=== PATIENT | female | born 1980 | race Caucasian/White ===

== ENCOUNTER → 2017-06-03 | Outpatient (CLI) | payer BC | END | disposition home or self-care (01) | LOC: LABWHC1 16:59 | PROVIDERS: ATTEND Obstetrics & Gynecology | DX: Z34.80 Encounter for supervision of other normal pregnancy, unspecified trimester (principal); Z3A.00 Weeks of gestation of pregnancy not specified | CPT/HCPCS: 36415; 84702; 86850; 86900; 86901 ==

== ENCOUNTER → 2017-07-13 | Outpatient (CLI) | payer BC ==
[2017-07-13 17:43] LABS: HCT 35.1 % (34.0-46.0); HGB 11.9 gm/dL (11.4-16.0); MCH 29.5 pg (25.0-35.0); MCHC 33.8 g/dL (31.0-37.0); MCV 87.3 fL (80.0-100.0); Mean Platelet Volume 8.7; Platelet Count 213 k/uL (150-450); RBC 4.02 m/uL (3.80-5.40); RDW 12.8 % (11.5-15.5); WBC 11.2 k/uL (3.8-10.6)
[2017-07-13 17:59] LABS: Glucose 96 mg/dL (74-99)
[2017-07-14 03:11] LABS: HIV AB P24 Non-Reactive (Non-Reactive); HIV P24 AG Non-Reactive (Non-Reactive)
[2017-07-15 05:00] LABS: Toxoplasma Antibody (IgG) <3.0 IU/mL (<7.2); Toxoplasma Antibody (IgM) <3.0 AU/mL (<8.0)
== END | disposition home or self-care (01) ==
LOC: LABWHC1 17:15
PROVIDERS: ATTEND Obstetrics & Gynecology
DX: O26.811 Pregnancy related exhaustion and fatigue, first trimester (principal); Z3A.00 Weeks of gestation of pregnancy not specified
CPT/HCPCS: 36415; 82565; 82947; 85027; 86592; 86762; 86777; 86778; 87340; 87390

== ENCOUNTER 2017-08-11 00:03 | Emergency (ER) | payer BC ==
[2017-08-11 00:11] VITALS: RESP 18; TEMP 98.9
[2017-08-11 02:26] LABS: Appearance,Urine Clear (Clear); Basophils % (A) 0 %; Bilirubin,Urine Negative (Negative); Blood,Urine Negative (Negative); Color,Urine Yellow; Eosinophils # (A) 0.4 k/uL (0-0.7); Eosinophils % (A) 3 %; Glucose,Urine (UA) Negative (Negative); HCT 36.4 % (34.0-46.0); HGB 12.9 gm/dL (11.4-16.0); Ketones,Urine Negative (Negative); Leukocyte Esterase,Urine Negative (Negative); Lymphocytes # (A) 2.1 k/uL (1.0-4.8); Lymphocytes % (A) 15 %; MCH 29.7 pg (25.0-35.0); MCHC 35.3 g/dL (31.0-37.0); MCV 84.1 fL (80.0-100.0); Mean Platelet Volume 7.5; Monocytes # (A) 0.5 k/uL (0-1.0); Monocytes % (A) 4 %; Neutrophils # (A) 10.3 k/uL (1.3-7.7); Neutrophils % (A) 77 %; Nitrite,Urine Negative (Negative); PH, Urine 6.5 (5.0-8.0); Platelet Count 232 k/uL (150-450); Protein,Urine Negative (Negative); RBC 4.33 m/uL (3.80-5.40); RDW 12.5 % (11.5-15.5); Specific Gravity,Urine 1.014 (1.001-1.035); Urobilinogen,Urine <2.0 mg/dL (<2.0); WBC 13.4 k/uL (3.8-10.6)
--- NOTE | 2017-08-11 02:29 | ED ---
Abdominal Pain HPI - General Chief Complaint: Abdominal Pain Stated Complaint: 15.5 wks preg cramping Time Seen by Provider: 08/11/17 01:27 Source: patient, family, RN notes reviewed Mode of arrival: ambulatory Limitations: no limitations - History of Present Illness Initial Comments: This is a A1 37-year-old female, currently 15.5 weeks , who presents to the emergency department with chief complaint of lower abdominal cramping. Patient states that she developed what felt like menstrual cramping this evening at approximately 9:30. Denies any vaginal bleeding or abnormal discharge. States that currently the cramping is mild. States that her TUNNEL MAN is Dr. Lee. Denies fevers or chills, nausea or vomiting, diarrhea or constipation, chest pain or shortness of breath. - Related Data Home Medications Medication Instructions Recorded Confirmed Bfd-Mvfk-Adfuz Acid 1 tab PO HS 09/09/13 08/11/17 [-U Capsule (formulary)] B Complex & C No.20/Folic Acid 1 mg PO DAILY 04/23/16 08/11/17 [Nephrocaps Softgel] Sertraline HCl [Zoloft] 150 mg PO DAILY 08/11/17 08/11/17 Previous Rx's Medication Instructions Recorded Ibuprofen [Motrin] 600 mg PO Q6HR PRN #40 tab 04/24/16 Allergies Allergy/AdvReac Type Severity Reaction Status Date / Time No Known Allergies Allergy Verified 08/11/17 00:11 Review of Systems ROS Statement: Those systems with pertinent positive or pertinent negative responses have been documented in the HPI. ROS Other: All systems not noted in ROS Statement are negative. Past Medical History Past Medical History: GERD/Reflux Additional Past Medical History / Comment(s): MISSED AB - HAVING VAGINAL BLEEDING. History of Any Multi-Drug Resistant Organisms: None Reported Past Surgical History: No Surgical Hx Reported Additional Past Surgical History / Comment(s): Patient had a dilation and curettage for a missed . Past Anesthesia/Blood Transfusion Reactions: No Reported Reaction, Family History of Problems w/ Anesthesia Additional Past Anesthesia/Blood Transfusion Reaction / Comment(s): NO SURGICAL HX. PT'S MOM HAS PONV Past Psychological History: Anxiety Smoking Status: Never smoker Past Alcohol Use History: Occasional Past Drug Use History: None Reported - Past Family History Mother Family Medical History: No Reported History Father Family Medical History: No Reported History General Exam - General Exam Comments Initial Comments: General: Awake and alert, well-developed; in no apparent distress. is at bedside. HEENT: Head atraumatic, normocephalic. Pupils are equal, round and reactive to light. Extraocular movements intact. Oropharynx moist without erythema or exudate. Neck: Supple. Normal ROM. Cardiovascular: Regular rate and rhythm. No murmurs, rubs or gallops. Chest symmetrical. Respiratory: Lungs clear to auscultation bilaterally. No wheezes, rales or rhonchi. Normal respiratory effort with no use of accessory muscles. Abdomen: Soft, non-tender, non-distended. No rigidity, rebound or guarding. Musculoskeletal: Normal ROM, no tenderness bilateral upper and lower extremities. Skin: [place], warm and dry without rashes or lesions. Neurological: Alert and oriented x3. CN II-XII grossly intact. Speech is fluent and answers are appropriate. No focal neuro deficits. Psychiatric: Normal mood and affect. No overt signs of depression or anxiety noted. Limitations: no limitations Course Vital Signs 08/11/17 08/11/17 00:07 03:32 Temperature 98.9 F 98.9 F Pulse Rate 98 81 Respiratory 18 18 Rate Blood Pressure 124/81 134/72 O2 Sat by Pulse 97 98 Oximetry Medical Decision Making - Medical Decision Making This is a 37-year-old female, currently 15.5 weeks , who presents to the emergency department with chief complaint of lower abdominal cramping. Patient's vital signs are stable and she is in no acute distress. CBC did reveal a slight increase in white count at 13.4 with left shift at 10.3. CMP and UA were within normal limits. Obstetric ultrasound revealed a single, live intrauterine at 16 weeks/4 days with evidence of posterior marginal placenta previa without abruption. Patient denies any vaginal bleeding. Her OB /MARINE STRUCTURAL WELDER is Dr. Lee. Recommended following up with Dr. Lee tomorrow. Patient was made aware of findings and plan. She is in agreement and voices understanding. She is in no acute distress. All questions answered. - Lab Data Result diagrams: 08/11/17 02:10 08/11/17 02:10 Lab Results 08/11/17 08/11/17 08/11/17 Range/Units 02:10 02:10 02:10 WBC 13.4 H (3.8-10.6) k/uL RBC 4.33 (3.80-5.40) m/uL Hgb 12.9 (11.4-16.0) gm/dL Hct 36.4 (34.0-46.0) % MCV 84.1 (80.0-100.0) fL MCH 29.7 (25.0-35.0) pg MCHC 35.3 (31.0-37.0) g/dL RDW 12.5 (11.5-15.5) % Plt Count 232 (150-450) k/uL Neutrophils % 77 % Lymphocytes % 15 % Monocytes % 4 % Eosinophils % 3 % Basophils % 0 % Neutrophils # 10.3 H (1.3-7.7) k/uL Lymphocytes # 2.1 (1.0-4.8) k/uL Monocytes # 0.5 (0-1.0) k/uL Eosinophils # 0.4 (0-0.7) k/uL Basophils # 0.0 (0-0.2) k/uL Sodium 136 L (137-145) mmol/L Potassium 4.4 (3.5-5.1) mmol/L Chloride 102 (98-107) mmol/L Carbon Dioxide 23 (22-30) mmol/L Anion Gap 11 mmol/L BUN 11 (7-17) mg/dL Creatinine 0.50 L (0.52-1.04) mg/dL Est GFR (CKD-EPI)AfAm >90 (>60 ml/min/1.73 sqM) Est GFR (CKD-EPI)NonAf >90 (>60 ml/min/1.73 sqM) Glucose 86 (74-99) mg/dL Calcium 9.7 (8.4-10.2) mg/dL Total Bilirubin 0.3 (0.2-1.3) mg/dL AST 29 (14-36) U/L ALT 44 (9-52) U/L Alkaline Phosphatase 64 (38-126) U/L Total Protein 6.9 (6.3-8.2) g/dL Albumin 3.7 (3.5-5.0) g/dL HCG, Quant 98556.2 mIU/mL Urine Color Yellow Urine Appearance Clear (Clear) Urine pH 6.5 (5.0-8.0) Ur Specific [place] 1.014 (1.001-1.035) Urine Protein Negative (Negative) Urine Glucose (UA) Negative (Negative) Urine Ketones Negative (Negative) Urine Blood Negative (Negative) Urine Nitrite Negative (Negative) Urine Bilirubin Negative (Negative) Urine Urobilinogen <2.0 (<2.0) mg/dL Ur Leukocyte Esterase Negative (Negative) Blood Type Blood Type Recheck 08/11/17 Range/Units 02:43 WBC (3.8-10.6) k/uL RBC (3.80-5.40) m/uL Hgb (11.4-16.0) gm/dL Hct (34.0-46.0) % MCV (80.0-100.0) fL MCH (25.0-35.0) pg MCHC (31.0-37.0) g/dL RDW (11.5-15.5) % Plt Count (150-450) k/uL Neutrophils % % Lymphocytes % % Monocytes % % Eosinophils % % Basophils % % Neutrophils # (1.3-7.7) k/uL Lymphocytes # (1.0-4.8) k/uL Monocytes # (0-1.0) k/uL Eosinophils # (0-0.7) k/uL Basophils # (0-0.2) k/uL Sodium (137-145) mmol/L Potassium (3.5-5.1) mmol/L Chloride (98-107) mmol/L Carbon Dioxide (22-30) mmol/L Anion Gap mmol/L BUN (7-17) mg/dL Creatinine (0.52-1.04) mg/dL Est GFR (CKD-EPI)AfAm (>60 ml/min/1.73 sqM) Est GFR (CKD-EPI)NonAf (>60 ml/min/1.73 sqM) Glucose (74-99) mg/dL Calcium (8.4-10.2) mg/dL Total Bilirubin (0.2-1.3) mg/dL AST (14-36) U/L ALT (9-52) U/L Alkaline Phosphatase (38-126) U/L Total Protein (6.3-8.2) g/dL Albumin (3.5-5.0) g/dL HCG, Quant mIU/mL Urine Color Urine Appearance (Clear) Urine pH (5.0-8.0) Ur Specific [place] (1.001-1.035) Urine Protein (Negative) Urine Glucose (UA) (Negative) Urine Ketones (Negative) Urine Blood (Negative) Urine Nitrite (Negative) Urine Bilirubin (Negative) Urine Urobilinogen (<2.0) mg/dL Ur Leukocyte Esterase (Negative) Blood Type AB Negative Blood Type Recheck No - Radiology Data Radiology results: report reviewed Obstetric ultrasound impression: Single, live IUP, 16 weeks/4 days. EDC: 2017. Heart rate 150 bpm, placenta previa is noted at this time. Impression: The cervix is closed and measures 3.8 cm. There is a posterior marginal placental previa. No evidence of abruption. Disposition Clinical Impression: Abdominal pain during , Placenta previa Disposition: HOME SELF-CARE Condition: Good Instructions: Abdominal Pain in (ED), Placenta Previa (ED) Additional Instructions: Please follow-up with Dr. Lee today or tomorrow. Please follow up with primary care provider within 1-2 days. Return to emergency department if symptoms should worsen or any concerns arise. Is patient prescribed a controlled substance at discharge?: No Referrals: Salvador Jung DO [Primary Care Provider] - 1-2 days Time of Disposition: 04:04
[2017-08-11 02:38] LABS: ALT 44 U/L (9-52); AST 29 U/L (14-36); Albumin 3.7 g/dL (3.5-5.0); Alkaline Phosphatase 64 U/L (38-126); Anion Gap 11 mmol/L; Blood Urea Nitrogen 11 mg/dL (7-17); Calcium 9.7 mg/dL (8.4-10.2); Carbon Dioxide 23 mmol/L (22-30); Chloride 102 mmol/L (98-107); Glucose 86 mg/dL (74-99); Potassium 4.4 mmol/L (3.5-5.1); Sodium 136 mmol/L (137-145); Total Bilirubin 0.3 mg/dL (0.2-1.3); Total Protein 6.9 g/dL (6.3-8.2)
--- NOTE | 2017-08-11 03:14 | US ---
EXAMINATION TYPE: US OB >= 14 wk fetus DATE OF EXAM: 08/11/2017 COMPARISON: None CLINICAL HISTORY: Pain; contractions x 3 hours TECHNIQUE: Transabdominal (TA) with TV US for cervical measure GESTATIONAL AGE / DATING Physician Established: Not yet established Dates by LMP: (15 weeks/5 days) EDC: 01/28/2018 Dates by First Scan: No previous this is first scan ) Dates by Current Scan: (16 weeks/4 days) EDC: 01/22/2018 Beta HCG (if available): na SURVEY IUP: Single PLACENTA: Posterior PREVIA: Complete ROBIN: 9.5 cm is just at start of measuring ROBIN at 16 weeks gestation CERVICAL LENGTH (transabdominal: norm > 3.0cm): cervix not well seen with empty bladder thus TV US do ne CERVICAL LENGTH (transvaginal: norm> 2.5cm): 3.6 cm (Supplemental transvaginal imaging performed to verify cervical length.) BIOMETRY PRESENTATION: Vertex LIE: Longitudinal BPD: 3.4 cm 16 weeks / 4 days HC: 12.2 cm 16 weeks / 1 day AC: 10.7 cm 16 weeks / 4 days FL: 2.2 cm 16. weeks / 4 days ESTIMATED WEIGHT IN GRAMS: 159.9 grams ESTIMATED WEIGHT IN LBS/OZ: 0 lbs. 6 oz. WEIGHT PERCENTAGE BASED ON ESTABLISHED DATES: 90.4% HC/AC: 1.15 Normal FL/AC: 20.61 Normal HEART RATE: 150 bpm RHYTHM: Normal Single, live IUP,16 weeks/4 days, EDC: 01/22/2018 , HR 150bpm, placenta previa is noted at this time. IMPRESSION: The cervix is closed and measures 3.8 cm. There is a posterior marginal placenta previa. No evidence of abruption.
[2017-08-11 03:23] LABS: HCG,Quantitative Serum 36238.2 mIU/mL
[2017-08-11 03:33] VITALS: BP 134/72; PULSE 81
== END 2017-08-11 04:13 | disposition home or self-care (01) ==
LOC: EC 00:03
DX: O44.02 Complete placenta previa NOS or without hemorrhage, second trimester (principal); O99.89 Other specified diseases and conditions complicating pregnancy, childbirth and the puerperium; R10.30 Lower abdominal pain, unspecified; O99.342 Other mental disorders complicating pregnancy, second trimester; F41.9 Anxiety disorder, unspecified; Z79.899 Other long term (current) drug therapy; Z3A.16 16 weeks gestation of pregnancy
CPT/HCPCS: 36415; 76805; 76817; 80053; 81003; 84702; 85025; 86900; 86901; 87086; 99284

== ENCOUNTER → 2017-11-04 | Outpatient (CLI) | payer BC ==
[2017-11-04 09:39] LABS: HCT 31.4 % (34.0-46.0); HGB 10.8 gm/dL (11.4-16.0); MCH 30.8 pg (25.0-35.0); MCHC 34.3 g/dL (31.0-37.0); MCV 89.8 fL (80.0-100.0); Mean Platelet Volume 8.2; Platelet Count 207 k/uL (150-450); WBC 11.9 k/uL (3.8-10.6)
== END | disposition home or self-care (01) ==
LOC: LABWHC1 08:13
PROVIDERS: ATTEND Obstetrics & Gynecology
DX: Z34.82 Encounter for supervision of other normal pregnancy, second trimester (principal); Z3A.00 Weeks of gestation of pregnancy not specified
CPT/HCPCS: 36415; 82950; 85027; 86850

== ENCOUNTER → 2017-11-19 | Outpatient (CLI) | payer BC ==
[2017-11-19 12:16] LABS: Glucose 3 Hour, Gest 108 mg/dL
== END | disposition home or self-care (01) ==
LOC: LABWHC1 08:11
PROVIDERS: ATTEND Obstetrics & Gynecology
DX: O99.810 Abnormal glucose complicating pregnancy (principal); Z3A.00 Weeks of gestation of pregnancy not specified
CPT/HCPCS: 36415; 82951; 82952

== ENCOUNTER 2018-01-21 06:00 | Inpatient (IN) | payer BC ==
[2018-01-21] MEDS ORDERED: AMPICILLIN 2,000 MG in SODIUM CHLORIDE 0.9% 100 ML IVPB STA (06:08)
[2018-01-21] MEDS ORDERED: OXYTOCIN 20 UNITS/1000 ML NS 1,000 ML IV SCH ×2 (06:08→13:01)
[2018-01-21] MEDS ORDERED: CARBOPROST TROMETHAMINE 250 MCG/ML 1 ML AMP IM PRN (06:08)
[2018-01-21] MEDS ORDERED: METHYLERGONOVINE 0.2 MG/ML 1 ML AMP IM PRN (06:08)
[2018-01-21] MEDS ORDERED: LIDOCAINE 0.5% (PF) 5 MG/ML (50 ML SDV) SQ PRN (06:08)
[2018-01-21] MEDS ORDERED: TERBUTALINE 1 MG/ML VIAL SQ PRN (06:08)
[2018-01-21] MEDS ORDERED: OXYTOCIN 10 UNIT/ML 1 ML VIAL IM PRN (06:08)
[2018-01-21] MEDS: LACTATED RINGERS 1,000 ML IV SCH ×2 (06:18→10:45)
[2018-01-21 06:26] VITALS: RESP 16; BMI 31.8
[2018-01-21 06:27] LABS: Basophils % (A) 0 %; Eosinophils # (A) 0.3 k/uL (0-0.7); Eosinophils % (A) 3 %; HCT 34.9 % (34.0-46.0); HGB 11.6 gm/dL (11.4-16.0); Lymphocytes # (A) 1.9 k/uL (1.0-4.8); Lymphocytes % (A) 17 %; MCH 28.1 pg (25.0-35.0); MCHC 33.2 g/dL (31.0-37.0); MCV 84.8 fL (80.0-100.0); Mean Platelet Volume 9.8; Monocytes # (A) 0.7 k/uL (0-1.0); Monocytes % (A) 6 %; Neutrophils # (A) 8.2 k/uL (1.3-7.7); Neutrophils % (A) 73 %; Platelet Count 152 k/uL (150-450); RBC 4.12 m/uL (3.80-5.40); RDW 13.7 % (11.5-15.5); WBC 11.4 k/uL (3.8-10.6)
--- NOTE | 2018-01-21 06:33 | P.HPOB ---
History of Present Illness H&P Date: 01/21/18 Chief Complaint: Cholestasis of . This patient is a pleasant 37-year-old 4 para 2 female estimated date of confinement 01/28/2018 estimated gestational age 39-0/7 weeks gestation who is admitted to labor and delivery for induction of labor due to suspected cholestasis. Patient recalled my office proximally 2 days ago with complaints of itching of her hands and feet and bilateral's as are pending but liver function tests were mildly elevated. Since the patient is 39 weeks with a favorable cervix I recommended proceed with delivery at this time. Patient's care is complicated by advanced for maternal age and she has seen maternal medicine and had a level III ultrasound that was normal however her cardiac echo did show persistent mild increased left ventricular low velocity. The specialist did not feel that this was anything that would affect delivery or the immediate period however did recommend a nonemergent heart echo . otherwise has been uncomplicated. Review of Systems Gastrointestinal: Reports heartburn Genitourinary: Reports Menstruation: Reports amenorrhea Past Medical History Past Medical History: GERD/Reflux Additional Past Medical History / Comment(s): Patient's had 2 spontaneous vaginal deliveries. History of Any Multi-Drug Resistant Organisms: None Reported Past Surgical History: No Surgical Hx Reported Additional Past Surgical History / Comment(s): Patient had a dilation and curettage for a missed . Past Anesthesia/Blood Transfusion Reactions: No Reported Reaction, Family History of Problems w/ Anesthesia Additional Past Anesthesia/Blood Transfusion Reaction / Comment(s): NO SURGICAL HX. PT'S MOM HAS PONV Past Psychological History: Anxiety Smoking Status: Never smoker Past Alcohol Use History: Occasional Past Drug Use History: None Reported - Past Family History Mother Family Medical History: No Reported History Father Family Medical History: No Reported History Medications and Allergies Home Medications Medication Instructions Recorded Confirmed Type Fpx-Gyqg-Agykb Acid 1 tab PO HS 09/09/13 01/21/18 History [-U Capsule (formulary)] B Complex & C No.20/Folic Acid 1 mg PO DAILY 04/23/16 01/21/18 History [Nephrocaps Softgel] Ibuprofen [Motrin] 600 mg PO Q6HR PRN #40 tab 04/24/16 01/21/18 Rx Sertraline HCl [Zoloft] 50 mg PO DAILY 08/11/17 01/21/18 History Allergies Allergy/AdvReac Type Severity Reaction Status Date / Time No Known Allergies Allergy Verified 01/21/18 06:07 Exam Intake and Output 01/20/18 01/20/18 01/21/18 14:59 22:59 06:59 Other: Weight 78.925 kg - OBG Physical Exam Abdomen: bowel sounds normal, no diffuse tenderness, no bruit present, no guarding noted, no hepatomegaly, no splenomegaly, no mass Vulva: both: normal Vagina: normal moisture, no discharge Cervix: no lesion (Cervix is 2 cm dilated 70% effaced -2 station.), no discharge Uterus: enlarged (Fundal height is 38 cm) Results blood work shows she is AB-, rubella immune, RPR is nonreactive, hepatitis B is negative, HIV is nonreactive, ultrasounds have been as above, she is a positive group B strep she's had an abnormal Glucola with a normal three-hour gtt. Assessment and Plan Assessment: This is a pleasant 37-year-old 4 para 2 female 39-0/7 weeks gestation who is admitted to labor and delivery for induction of labor due to suspected cholestasis. Patient has a positive B strep culture and therefore receive IV antibiotics. Plan is induction of labor with Pitocin per protocol. I'm going to recheck her liver function tests and also notified pediatricians of the cardiac echo findings for heart echo. (1) Cholestasis during Current Visit: Yes Status: Acute Code(s): O26.619 - LIVER AND BILIARY TRACT DISORD IN , UNSP TRIMESTER; K83.1 - OBSTRUCTION OF BILE DUCT SNOMED Code(s): 745581158 (2) Rh negative, maternal Current Visit: No Status: Chronic Code(s): O09.899 - SUPERVISION OF OTHER HIGH RISK PREGNANCIES, UNSP TRIMESTER SNOMED Code(s): 043376392 (3) Group B streptococcal carriage complicating Current Visit: No Status: Acute Code(s): O99.820 - STREPTOCOCCUS B CARRIER STATE COMPLICATING SNOMED Code(s): 060766182005792 (4) Elderly multigravida Current Visit: Yes Status: Acute Code(s): O09.529 - SUPERVISION OF ELDERLY MULTIGRAVIDA, UNSPECIFIED TRIMESTER SNOMED Code(s): 181135895
[2018-01-21 06:36] LABS: Albumin 3.3 g/dL (3.5-5.0); Bilirubin, Delta 0.2 mg/dL (0.0-0.2); Bilirubin,Unconjugated 0.2 mg/dL (0.0-1.1); Total Bilirubin 0.4 mg/dL (0.2-1.3); Total Protein 6.4 g/dL (6.3-8.2)
[2018-01-21] MEDS ORDERED: BUPIVACAINE (PF) 0.25% 30 ML VIAL ONE (08:29)
[2018-01-21] MEDS ORDERED: fentaNYL (PF) 50 MCG/ML 5 ML AMP ONE (08:29)
[2018-01-21] MEDS ORDERED: ROPIVACAINE 5MG/ML 20ML VIAL ONE (08:29)
[2018-01-21] MEDS ORDERED: SODIUM CHLORIDE 0.9% 100 ML BAG ONE (08:29)
[2018-01-21] MEDS ORDERED: AMPICILLIN 1,000 MG in SODIUM CHLORIDE 0.9% 50 ML IVPB SCH (10:00)
--- NOTE | 2018-01-21 12:49 | P.PROBDLV ---
Vaginal Delivery Note - . Vaginal Delivery Note: Normal vaginal delivery viable female Apgars 8 and 9 delivery time is 1232 hrs. Please see dictated H&P for intimate details of this patient's admission. In brief summary this is a pleasant 37-year-old 4 para 2 female 39 weeks gestation admitted to labor and delivery for suspected cholestasis of . Patient is admitted she is 2 cm dilated has artificial rupture membranes for clear fluid. Labor is induced with Pitocin per protocol. Patient progresses and does get an epidural for pain control. Patient's labor goes quickly thereafter she gets to complete. Patient pushes approximately 3 times pushes the head to the perineum. Posterior perineum is supported. We then have controlled delivery of the infant's head over the intact perineum. Mouth and nares are bulb suctioned. There is no evidence of nuchal cord. With gentle downward traction and maternal effort we have delivery the anterior shoulder and posterior shoulder and rest this infant's body. This is a vigorous viable female Apgars are 8 and 9 delivery time was 1232 hrs. Infant has spontaneous respirations and good cry and grossly appears normal. is late on the mother's abdomen. After the cord is done pulsating is doubly clamped and cut. It appears to be trivascular. The placenta is then spontaneously delivered intact. Cord blood is obtained for Rh status. Inspection of the perineum shows no lacerations and no repairs necessary. and mother are stable delivery room. I did discuss previously with the pattern changer and repairer's baby's cardiac echo and this will be evaluated as well. All counts are correct 3. There are no complications.
[2018-01-21] MEDS ORDERED: WITCH HAZEL 1 EACH MED..PAD TOPICAL PRN (13:01)
[2018-01-21] MEDS ORDERED: BENZOCAINE/MENTHOL SPRAY 1 GM/SPRAY AEROSOL TOPICAL PRN (13:01)
[2018-01-21] MEDS ORDERED: Rhogam IMMUNE GLOBULIN 1,500 UNIT/1 ML IM ONE (13:01)
[2018-01-21] MEDS ORDERED: HYDROCORTISONE 2.5% RECTAL CREAM 30 GM TUBE RECTAL PRN (13:01)
[2018-01-21] MEDS ORDERED: SIMETHICONE 80 MG CHEWABLE PO PRN (13:01)
[2018-01-21] MEDS ORDERED: BISACODYL 10 MG SUPP RECTAL PRN (13:01)
[2018-01-21] MEDS ORDERED: diphenhydrAMINE 50 MG/ML 1 ML VIAL IVP PRN (13:01)
[2018-01-21] MEDS ORDERED: ACETAMINOPHEN TAB 325 MG TAB PO PRN (13:01)
[2018-01-21] MEDS ORDERED: LANOLIN CREAM 5 GM TUBE TOPICAL PRN (13:01)
[2018-01-21] MEDS ORDERED: diphenhydrAMINE 25 MG CAP PO PRN (13:01)
[2018-01-21] MEDS ORDERED: ZOLPIDEM 5 MG TAB PO PRN (13:01)
[2018-01-21] MEDS: IBUPROFEN 600 MG TAB PO PRN (18:19)
[2018-01-21] MEDS: SENNOSIDES-DOCUSATE SODIUM 1 EACH TAB PO SCH ×2 (20:47→20:48)
[2018-01-22] MEDS: IBUPROFEN 600 MG TAB PO PRN ×2 (00:17→10:29)
--- NOTE | 2018-01-22 06:00 | P.PNOBGVD ---
Subjective - Subjective Patient reports: Reports appetite normal, Reports voiding normally, Reports pain well controlled, Reports ambulating normally : doing well Objective - Latest Vital Signs Latest vital signs: Vital Signs Temp Pulse Resp BP Pulse Ox 01/22/18 00:00 98.4 F 73 16 127/74 01/21/18 20:00 99.0 F 79 16 136/91 01/21/18 15:25 97.6 F 92 16 120/68 01/21/18 14:30 80 16 160/84 01/21/18 13:50 94 16 138/67 01/21/18 13:35 92 16 120/63 01/21/18 13:20 90 16 128/63 01/21/18 13:05 102 H 16 128/63 01/21/18 12:50 97.8 F 96 16 137/66 01/21/18 06:06 96.5 F L 97 16 130/86 97 Intake and Output 01/21/18 01/21/18 01/22/18 14:59 22:59 06:59 Output Total 150 Balance -150 Output: Estimated Blood Loss 150 Other: # Voids 0 1 - Exam Lungs: bilateral: normal Chest: Normal S1, Normal S2 Extremities: Present: normal Abdomen: Present: normal appearance, soft Uterus: Present: normal, firm - Labs Labs: Abnormal Lab Results - Last 24 Hours (Table) 01/21/18 01/21/18 Range/Units 06:15 06:15 WBC 11.4 H (3.8-10.6) k/uL Neutrophils # 8.2 H (1.3-7.7) k/uL AST 95 H (14-36) U/L ALT 99 H (9-52) U/L Alkaline Phosphatase 189 H (38-126) U/L Albumin 3.3 L (3.5-5.0) g/dL Assessment and Plan Assessment: Post day #1. Patient is resting without complaints wishes to go home. Vital signs are stable and she is afebrile. Patient's liver function tests and CBC are pending at this time. Plan is to continue routine care. Most likely discharge home later today. (1) Cholestasis during Current Visit: Yes Status: Acute Code(s): O26.619 - LIVER AND BILIARY TRACT DISORD IN , UNSP TRIMESTER; K83.1 - OBSTRUCTION OF BILE DUCT SNOMED Code(s): 899043209 (2) Rh negative, maternal Current Visit: No Status: Chronic Code(s): O09.899 - SUPERVISION OF OTHER HIGH RISK PREGNANCIES, UNSP TRIMESTER SNOMED Code(s): 032811054 (3) Group B streptococcal carriage complicating Current Visit: No Status: Acute Code(s): O99.820 - STREPTOCOCCUS B CARRIER STATE COMPLICATING SNOMED Code(s): 579247216038233 (4) Elderly multigravida Current Visit: Yes Status: Acute Code(s): O09.529 - SUPERVISION OF ELDERLY MULTIGRAVIDA, UNSPECIFIED TRIMESTER SNOMED Code(s): 703973991
--- NOTE | 2018-01-22 06:11 | P.DS ---
Providers Date of admission: 01/21/18 06:00 Expected date of discharge: 01/22/18 Attending physician: Jose Lee Primary care physician: Salvador Jung - Discharge Diagnosis(es) (1) Cholestasis during Current Visit: Yes Status: Acute (2) Rh negative, maternal Current Visit: No Status: Chronic (3) Group B streptococcal carriage complicating Current Visit: No Status: Acute (4) Elderly multigravida Current Visit: Yes Status: Acute Hospital Course: Please see dictated H&P for intimate details of this patient's admission. Brief summary this pleasant 37-year-old 4 para 2 female admitted to labor and delivery for suspected cholestasis. Patient is uncomplicated induction of labor was on have a vaginal delivery viable female infant. Please see dictated delivery note. Patient's AST and ALT were elevated on admission and the 90 range and repeat is pending at time is dictation. Patient's felt be stable for discharge home follow up with me in 6 weeks. We'll monitor her liver function tests as an outpatient. Procedures: Induction of labor and normal vaginal delivery Patient Condition at Discharge: Good Plan - Discharge Summary New Discharge Prescriptions: New Ibuprofen [Motrin] 600 mg PO Q6HR PRN #40 tab PRN Reason: Mild Pain Or Fever >= 100.5 No Action Zjg-Xgen-Vjjzw Acid [-U Capsule (formulary)] 1 tab PO HS B Complex & C No.20/Folic Acid [Nephrocaps Softgel] 1 mg PO DAILY Ibuprofen [Motrin] 600 mg PO Q6HR PRN #40 tab PRN Reason: Mild Pain Or Fever >= 100.5 Sertraline HCl [Zoloft] 50 mg PO DAILY Discharge Medication List Mub-Swlm-Hkatr Acid [-U Capsule (formulary)] 1 tab PO HS [History] B Complex & C No.20/Folic Acid [Nephrocaps Softgel] 1 mg PO DAILY 04/23/16 [ History] Ibuprofen [Motrin] 600 mg PO Q6HR PRN #40 tab 04/24/16 [Rx] Sertraline HCl [Zoloft] 50 mg PO DAILY 08/11/17 [History] Ibuprofen [Motrin] 600 mg PO Q6HR PRN #40 tab 01/22/18 [Rx] Follow up Appointment(s)/Referral(s): Jose Lee MD [STAFF PHYSICIAN] - 03/04/18 11:15 am Patient Instructions/Handouts: Vaginal Delivery (DC) Activity/Diet/Wound Care/Special Instructions: No intercourse or anything per vagina for 6 weeks. Please call if any fever, chills, excessive vaginal bleeding, and/or abdominal pain. Discharge Disposition: HOME SELF-CARE
[2018-01-22 07:38] VITALS: BP 122/76; PULSE 76; TEMP 97.6
[2018-01-22] MEDS: SENNOSIDES-DOCUSATE SODIUM 1 EACH TAB PO SCH (07:47)
[2018-01-22 08:11] LABS: Basophils % (A) 0 %; Eosinophils # (A) 0.2 k/uL (0-0.7); Eosinophils % (A) 2 %; HCT 32.1 % (34.0-46.0); HGB 10.5 gm/dL (11.4-16.0); Lymphocytes # (A) 1.7 k/uL (1.0-4.8); Lymphocytes % (A) 13 %; MCH 28.4 pg (25.0-35.0); MCHC 32.9 g/dL (31.0-37.0); MCV 86.4 fL (80.0-100.0); Mean Platelet Volume 10.3; Monocytes # (A) 0.7 k/uL (0-1.0); Monocytes % (A) 6 %; Neutrophils % (A) 78 %; Platelet Count 137 k/uL (150-450); RBC 3.71 m/uL (3.80-5.40); RDW 13.8 % (11.5-15.5); WBC 12.9 k/uL (3.8-10.6)
[2018-01-22 08:27] LABS: Albumin 2.6 g/dL (3.5-5.0); Bilirubin, Delta 0.4 mg/dL (0.0-0.2); Total Bilirubin 0.4 mg/dL (0.2-1.3); Total Protein 5.2 g/dL (6.3-8.2)
== END 2018-01-22 15:30 | disposition home or self-care (01) | DRG 775 ==
LOC: 4FBP 06:00
PROVIDERS: ADMIT Obstetrics & Gynecology; ATTEND Obstetrics & Gynecology
PROC: 3E0R3NZ Introduction of Analgesics, Hypnotics, Sedatives into Spinal Canal, Percutaneous Approach (ICD-10-PCS; principal; 2018-01-21)
PROC: 10E0XZZ Delivery of Products of Conception, External Approach (ICD-10-PCS; principal; 2018-01-21)
PROC: 10907ZC Drainage of Amniotic Fluid, Therapeutic from Products of Conception, Via Natural or Artificial Opening (ICD-10-PCS; principal; 2018-01-21)
PROC: 3E033VJ Introduction of Other Hormone into Peripheral Vein, Percutaneous Approach (ICD-10-PCS; principal; 2018-01-21)
PROC: 00HU33Z Insertion of Infusion Device into Spinal Canal, Percutaneous Approach (ICD-10-PCS; principal; 2018-01-21)
DX: O26.62 Liver and biliary tract disorders in childbirth (principal); K83.1 Obstruction of bile duct; O36.0930 Maternal care for other rhesus isoimmunization, third trimester, not applicable or unspecified; Z37.0 Single live birth; O99.824 Streptococcus B carrier state complicating childbirth; Z3A.39 39 weeks gestation of pregnancy; F41.9 Anxiety disorder, unspecified; O99.344 Other mental disorders complicating childbirth; Z79.899 Other long term (current) drug therapy
CPT/HCPCS: 80076; 85025; 85461; 86850; 86900; 86901

== ENCOUNTER 2018-11-06 21:14 | Observation (INO) | payer BC ==
[2018-11-06] MEDS ORDERED: GLUCAGON 1 MG/ML VIAL IM STA (22:06)
--- NOTE | 2018-11-06 22:11 | ED ---
General Adult HPI - General Chief complaint: ENT Stated complaint: FB throat Time Seen by Provider: 11/06/18 22:00 Source: patient Mode of arrival: ambulatory Limitations: no limitations - History of Present Illness Initial comments: Dictation was produced using [employer] dictation software. please excuse any grammatical, word or spelling errors. Chief Complaint: 38-year-old female with past medical history of foreign body food impaction presents with foreign body food impaction. History of Present Illness: Patient is a 38-year-old female she is here today because she was eating ribeye and felt like piece of meat got stuck in her throat. Patient has had this happen on multiple medications for the past several years. She does report that she's been having increased frequency over the last year for approximately one time per month. Patient was scheduled to get an EGD however never followed up with that appointment. Patient has any respiratory distress. It hasn't been drooling. Denies any pain. She has been spitting up however. The ROS documented in this emergency department record has been reviewed and confirmed by me. Those systems with pertinent positive or negative responses have been documented in the HPI. All other systems are other negative and/or noncontributory. PHYSICAL EXAM: General Impression: Alert and oriented x3, not in acute distress HEENT: Normocephalic atraumatic, extra-ocular movements intact, pupils equal and reactive to light bilaterally, mucous membranes moist. Cardiovascular: Heart regular rate and rhythm, S1&S2 audible, no murmurs, rubs or gallops Chest: Lungs clear to auscultation bilaterally, no rhonchi, no wheeze, no rales Abdomen: Bowel sounds present, abdomen soft, non-tender, non-distended, no organomegaly Musculoskeletal: Pulses present and equal in all extremities, no peripheral edema Motor: no focal deficits noted Neurological: CN II-XII grossly intact, no focal motor or sensory deficits noted Skin: Intact with no visualized rashes Psych: Normal affect and mood ED course: 38 female complains of esophageal food impaction vital signs upon arrival are within acceptable limits. X-ray was performed showing no evidence of esophageal foreign body. Patient given glucagon and cough. She is observed in the emergency department continues to have sensation of foreign body in the throat. Discussed patient case with Dr. Santoyo who reports that she will perform esophageal foreign body removal at 6 in the morning. Patient is going to be dispositioned to observation pending GI evaluation likely upper endoscopy for removal of esophageal foreign body and exploration. Patient is understandable and agreeable to disposition. - Related Data Home Medications Medication Instructions Recorded Confirmed Sertraline HCl [Zoloft] 200 mg PO HS 11/06/18 11/06/18 Allergies Allergy/AdvReac Type Severity Reaction Status Date / Time egg AdvReac Mild Itching Verified 11/06/18 23:11 Review of Systems ROS Statement: Those systems with pertinent positive or pertinent negative responses have been documented in the HPI. ROS Other: All systems not noted in ROS Statement are negative. Past Medical History Past Medical History: GERD/Reflux Additional Past Medical History / Comment(s): Patient's had 2 spontaneous vaginal deliveries. History of Any Multi-Drug Resistant Organisms: None Reported Past Surgical History: No Surgical Hx Reported Additional Past Surgical History / Comment(s): Patient had a dilation and curettage for a missed . Past Anesthesia/Blood Transfusion Reactions: No Reported Reaction, Family History of Problems w/ Anesthesia Additional Past Anesthesia/Blood Transfusion Reaction / Comment(s): NO SURGICAL HX. PT'S MOM HAS PONV Past Psychological History: Anxiety Smoking Status: Never smoker Past Alcohol Use History: Occasional Past Drug Use History: None Reported - Past Family History Mother Family Medical History: No Reported History Father Family Medical History: No Reported History General Exam Limitations: no limitations Course Vital Signs 11/06/18 21:26 Temperature 98.3 F Pulse Rate 67 Respiratory 18 Rate Blood Pressure 119/86 O2 Sat by Pulse 99 Oximetry Disposition Clinical Impression: Esophageal foreign body Disposition: ADMITTED IP TO THIS HOSP Condition: Fair Referrals: Salvador Jung DO [Primary Care Provider] - 1-2 days Decision Time: 00:51
--- NOTE | 2018-11-06 23:09 | XR ---
EXAM: XR Soft Tissue Neck CLINICAL HISTORY: ITS.REASON XR Reason: Pain TECHNIQUE: Frontal and lateral views of the soft tissues of the neck. COMPARISON: No relevant prior studies available. FINDINGS: Airway: Unremarkable. No abnormal narrowing. Bones/joints: No acute fracture. No dislocation. Soft tissues: Unremarkable. No abnormal soft tissue prominence. Normal epiglottis. IMPRESSION: No acute findings.
[2018-11-07] MEDS ORDERED: SODIUM CHLORIDE 0.9% 1,000 ML IV STA (00:47)
[2018-11-07] MEDS ORDERED: LORazepam 2 MG/ML INJ IV PRN (00:47)
[2018-11-07] MEDS ORDERED: NALOXONE 0.4 MG/ML 1 ML VIAL IV PRN (00:47)
[2018-11-07] MEDS ORDERED: LORazepam 2 MG/ML INJ IV STA (00:50)
[2018-11-07 01:23] LABS: Basophils # (A) 0.1 k/uL (0-0.2); Basophils % (A) 0 %; Eosinophils # (A) 0.7 k/uL (0-0.7); Eosinophils % (A) 5 %; HCT 41.2 % (34.0-46.0); HGB 13.5 gm/dL (11.4-16.0); Lymphocytes # (A) 2.8 k/uL (1.0-4.8); Lymphocytes % (A) 21 %; MCH 28.6 pg (25.0-35.0); MCHC 32.8 g/dL (31.0-37.0); MCV 87.3 fL (80.0-100.0); Mean Platelet Volume 7.3; Monocytes # (A) 0.7 k/uL (0-1.0); Monocytes % (A) 5 %; Neutrophils # (A) 8.7 k/uL (1.3-7.7); Neutrophils % (A) 67 %; Platelet Count 199 k/uL (150-450); RBC 4.72 m/uL (3.80-5.40); RDW 12.4 % (11.5-15.5); WBC 13.1 k/uL (3.8-10.6)
[2018-11-07 01:33] LABS: African American GFR (CKD) >90 (>60 ml/min/1.73 sqM); Anion Gap 10 mmol/L; Blood Urea Nitrogen 19 mg/dL (7-17); Calcium 9.9 mg/dL (8.4-10.2); Carbon Dioxide 29 mmol/L (22-30); Chloride 104 mmol/L (98-107); Glucose 116 mg/dL (74-99); Potassium 4.2 mmol/L (3.5-5.1); Sodium 143 mmol/L (137-145)
[2018-11-07 01:37] LABS: Prothrombin Time 10.3 sec (9.0-12.0)
[2018-11-07] MEDS: SODIUM CHLORIDE 0.9% 1,000 ML IV SCH ×2 (06:53→12:06)
[2018-11-07] MEDS ORDERED: SUCCINYLCHOLINE CHLORIDE 100 MG/5 ML SYR IV ONE (07:10)
[2018-11-07] MEDS ORDERED: PROPOFOL 10 MG/ML 20 ML VIAL IV ONE (07:10)
[2018-11-07] MEDS ORDERED: IV FLUID CONTINUATION 1,000 ML IV ONE (07:23)
--- NOTE | 2018-11-07 07:59 | P.PCN ---
Date of Procedure: 11/07/18 Procedure(s) Performed: BRIEF HISTORY: Patient is a 38-year-old, pleasant, white female, given the emergency room around midnight with acute dysphagia. She was eating steak for dinner last 7 could not swallow any further. She is been having intermittent episodes of dysphagia on and off for the last 2 years duration. She is scheduled for an upper endoscopy for foreign body retrieval.. PROCEDURE PERFORMED: Esophagogastroduodenoscopy with foreign body retrieval and biopsy. PREOPERATIVE DIAGNOSIS: Acute food dysphagia. IV sedation per anesthesia. PROCEDURE: After informed consent was obtained, the patient was brought into the endoscopy unit. IV sedation was administered by Anesthesia under continuous monitoring. Initially the Olympus GIF-140 video endoscope was inserted into the mouth. Esophagus intubated without any difficulty. In the proximal right esophagus at approximately 20 cm from the incisors there was a large piece of meat that was impacted. Using a snare was able to retract the food bolus along with the scope out of the mouth. The scope was reintroduced into the mouth and esophagus intubated and it was gradually advanced into the stomach and duodenum and carefully examined. The bulb and the second part of the duodenum appeared normal. The scope at this time was withdrawn to the stomach, adequately insufflated with air, and upon careful examination, mucosa of the antrum, body, cardia and the fundus appeared normal. The scope was then withdrawn into the esophagus. The GE junction was located at 39 cm from the incisors. The esophagus appeared normal. There were no erosions or ulcerations seen. Once again there was esophageal stricture identified in the proximal esophagus at 20 cm from the incisors with multiple superficial mucosal rings but no erosions or ulcerations. Biopsies were done from this area. The proximal esophagus appeared normal and the patient tolerated the procedure well. IMPRESSION: 1. Proximal esophageal stricture at 20 cm from the incisors with multiple superficial mucosal rings with food impaction status post removal as described above followed by multiple biopsies to rule out eosinophilic esophagitis. RECOMMENDATIONS: The findings of this examination were discussed with the patient as well as her family. She was advised to follow with the biopsy results. She'll remain on a soft diet today. She can be discharged home after recovery with outpatient follow-up in 2 weeks.
--- NOTE | 2018-11-07 08:25 | CONS ---
CONSULTATION DATE OF SERVICE: November 07, 2018. REQUESTING PHYSICIAN: Dr. Madelin Jung. REASON FOR CONSULTATION: Acute food impaction. HISTORY OF PRESENT ILLNESS: The patient is a 38-year-old pleasant white female with no significant past medical history, presents to the emergency room with acute food dysphagia. She was eating steak for dinner last night and could not swallow any further. She came to the emergency room around midnight. She was given glucagon with no help. She was able to swallow her secretions and hence she was admitted to observation and we are consulted for possible upper endoscopy this morning. She has been having intermittent episodes of dysphagia on and off for the last several months duration. In fact, she had an outpatient appointment to see us next week. She denies any heartburn. Reports no odynophagia. PAST MEDICAL HISTORY: Significant for depression. MEDICATIONS: At home: Sertraline. ALLERGIES: EGGS. SOCIAL HISTORY: No smoking. No alcohol use. FAMILY HISTORY: Unremarkable. REVIEW OF SYSTEMS: Cardiopulmonary: No chest pain, shortness of breath. GENITOURINARY: No dysuria or hematuria. MUSCULOSKELETAL: Unremarkable. SKIN unremarkable. ENDOCRINE unremarkable. PSYCHIATRIC unremarkable. NEUROLOGY unremarkable. ENT/vision unremarkable. CONSTITUTIONAL: No recent weight loss. No fever, chills, night sweats. PHYSICAL EXAMINATION: She appeared comfortable. No apparent distress. VITAL SIGNS: Stable. Blood pressure is 119/86, pulse rate 67, temperature 98.3. HEENT examination unremarkable. Conjunctivae pink, sclerae anicteric. Oral cavity no lesions. NECK: No JVD or lymph node enlargement. CHEST: Clear to auscultation. HEART: Regular rate and rhythm. ABDOMEN: Soft. Bowel sounds are positive. No organomegaly. EXTREMITIES: No pedal edema. SKIN: No rashes. NEUROLOGIC: Alert and oriented x3. No focal deficits. LABS: From this morning, WBC 13.1. Rest of the labs are within normal limits. IMPRESSION: Acute food impaction in this lady who has intermittent dysphagia to solids for the last several months duration. She was eating a piece of steak at home for dinner last night and could not swallow any further and came to the emergency room around midnight. She has been having intermittent dysphagia to solids for the last several months. Never had an upper endoscopy in the past. RECOMMENDATIONS: We will proceed with EGD today. Discussed with the patient, risks, benefits and complications of the procedure. Further recommendations to follow based on upper endoscopy. Thank you for this consultation. MMODL / IJN: [id number] /
[2018-11-07] MEDS ORDERED: PANTOPRAZOLE 40 MG/10 ML VIAL IV SCH (09:00)
[2018-11-07 10:11] VITALS: RESP 16
[2018-11-07 12:11] VITALS: BP 144/86; PULSE 104; TEMP 98
[2018-11-07 12:53] VITALS: BMI 31.6
--- NOTE | 2018-11-07 13:57 | P.HPIM ---
History of Present Illness H&P Date: 11/07/18 Chief Complaint: Food stuck in the throat History of presenting complaint: This is a very pleasant 38 year old patient who follows with Dr. Jung. Chronic stable medical conditions include reflux and anxiety. The latter of which she takes Zoloft. For years patient's had trouble swallowing mainly to solids including pills and sometimes with cold liquids. Yesterday she was eating meat and it got stuck in the upper chest. Unable to bring it up. And presented to the hospital for the same. Patient's weight is stable no loss of appetite. Patient early this morning was taken to the or an endoscopy was done and a piece of meat was extracted. Does also stricture about 20 cm from incisor. Biopsies were taken. Patient felt better after procedure. Review of systems: GEN.: None EYES: None HEENT: As above NECK: None RESPIRATORY: None CARDIOVASCULAR: None GASTROINTESTINAL: As above GENITOURINARY: None MUSCULOSKELETAL: None LYMPHATICS: None HEMATOLOGICAL: None PSYCHIATRY: Some anxiety NEUROLOGICAL: None Past medical history: Chronic dysphagia to solids pills and cold liquids, GERD Social history: Does not smoke, drinks and: Occasionally, with 3 children. 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 EYES: Pupils equal. Conjunctiva normal. HEENT: External appearance of nose and ears normal, oral cavity grossly normal. NECK: JVD not raised; masses not palpable. HEART: First and second heart sounds are normal; no edema. LUNGS: Respiratory rate normal; clear to auscultation. ABDOMEN: Soft, nontender, liver spleen not palpable, no masses palpable. PSYCH: Alert and oriented x3; mood and affect slightly anxiousl. NEUROLOGICAL: Cranial nerves grossly intact; no facial asymmetry, power and sensation grossly intact. LYMPHATICS: No lymph nodes palpable in the axilla and neck Investigations, reviewed in the clinical context: White count 13.1 and hemoglobin 13.5 potassium 4.2 Urine hCG negative Assessment: -Acute impaction of a foreign body in the upper esophagus, EGD was carried out a piece of meat was extracted. There was underlying esophageal stricture. -Chronic dysphagia to solids, pills: Cold Liquids, esophageal stricture at 20 cm from the incisor -Chronic anxiety not otherwise specified, stable Obesity BMI 31.6 Chronic GERD Plan: Patient status post endoscopy. Started on a soft diet. Hopefully can be disc harged later today. Care was discussed in detail with the patient. Also Dr. Guillermina Santoyo from GI. Past Medical History Past Medical History: GERD/Reflux Additional Past Medical History / Comment(s): Patient's had 2 spontaneous vaginal deliveries. History of Any Multi-Drug Resistant Organisms: None Reported Past Surgical History: No Surgical Hx Reported Additional Past Surgical History / Comment(s): Patient had a dilation and curettage for a missed . Past Anesthesia/Blood Transfusion Reactions: No Reported Reaction, Family Hi story of Problems w/ Anesthesia Additional Past Anesthesia/Blood Transfusion Reaction / Comment(s): NO SURGICAL HX. PT'S MOM HAS PONV Past Psychological History: Anxiety Smoking Status: Never smoker Past Alcohol Use History: Occasional Past Drug Use History: None Reported - Past Family History Mother Family Medical History: No Reported History Father Family Medical History: No Reported History Medications and Allergies Home Medications Medication Instructions Recorded Confirmed Type Sertraline HCl [Zoloft] 200 mg PO HS 11/06/18 11/06/18 History Allergies Allergy/AdvReac Type Severity Reaction Status Date / Time egg AdvReac Mild Itching Verified 11/06/18 23:11 Physical Exam Vitals: Vital Signs Temp Pulse Pulse Pulse Resp BP BP 11/07/18 12:00 98 F 104 H 16 144/86 11/07/18 10:00 98 16 130/80 11/07/18 09:30 96 16 131/70 11/07/18 09:15 97 16 130/67 11/07/18 09:05 16 11/07/18 09:00 93 16 129/73 11/07/18 08:45 98 16 127/78 11/07/18 08:30 97.2 F L 108 H 17 119/59 11/07/18 08:23 110 H 16 11/07/18 08:05 120 H 16 11/07/18 06:00 107 H 18 129/71 11/07/18 01:47 115 H 18 134/95 11/06/18 21:26 98.3 F 67 18 119/86 BP Pulse Ox 11/07/18 12:00 97 07/14/19 10:00 98 11/07/18 09:30 98 11/07/18 09:15 98 11/07/18 09:05 11/07/18 09:00 98 11/07/18 08:45 97 11/07/18 08:30 96 11/07/18 08:23 116/70 96 11/07/18 08:05 123/67 99 11/07/18 06:00 95 11/07/18 01:47 98 11/06/18 21:26 99 Intake and Output 11/06/18 11/07/18 11/07/18 22:59 06:59 14:59 Intake Total 100 Balance 100 Intake: IV 100 Other: Weight 78.471 kg Results CBC & Chem 7: 11/07/18 01:14 11/07/18 01:14 Labs: Abnormal Lab Results - Last 24 Hours (Table) 11/07/18 11/07/18 Range/Units 01:14 01:14 WBC 13.1 H (3.8-10.6) k/uL Neutrophils # 8.7 H (1.3-7.7) k/uL BUN 19 H (7-17) mg/dL Glucose 116 H (74-99) mg/dL
--- NOTE | 2018-11-07 22:24 | P.DS ---
Providers Date of admission: 11/07/18 00:50 Expected date of discharge: 11/07/18 Attending physician: Hernan Lewis Consults: 11/07/18 00:48 Consult Physician Routine Consulting Provider: Velia Santoyo Consult Reason/Comments: esophageal steak Do you want consulting provider notified?: Already Contacted Primary care physician: Salvador Jung [facility] Course: Chief Complaint: Food stuck in the throat Interval history: This is a very pleasant 38 year old patient who follows with Dr. Jung. Chronic stable medical conditions include reflux and anxiety. The latter of which she takes Zoloft. For years patient's had trouble swallowing mainly to solids including pills and sometimes with cold liquids. Yesterday she was eating meat and it got stuck in the upper chest. Unable to bring it up. And presented to the hospital for the same. Patient's weight is stable no loss of appetite. Patient early this morning was taken to the or an endoscopy was done and a piece of meat was extracted. Does have also stricture about 20 cm from incisor. Biopsies were taken. Patient felt better after procedure. Patient started on diet. Stable for discharge. Discussed with the patient and with Dr. Guillermina Santoyo. Consultations: Dr. Guillermina Santoyo Procedure: EGD Physical examination: VITAL SIGNS: 98, 104, 16, 140/86, 97% room air GENERAL: BMI 31.6, sitting up on the bed slightly anxious, admission vitals. EYES: Pupils equal. Conjunctiva normal. HEENT: External appearance of nose and ears normal, oral cavity grossly normal. NECK: JVD not raised; masses not palpable. HEART: First and second heart sounds are normal; no edema. LUNGS: Respiratory rate normal; clear to auscultation. ABDOMEN: Soft, nontender, liver spleen not palpable, no masses palpable. PSYCH: Alert and oriented x3; mood and affect slightly anxiousl. Investigations, reviewed in the clinical context: White count 13.1 and hemoglobin 13.5 potassium 4.2 Urine hCG negative Assessment: -Acute impaction of a foreign body in the upper esophagus, EGD was carried out a piece of meat was extracted. There was underlying esophageal stricture. Biopsies were taken -Chronic dysphagia to solids, pills: Cold Liquids, esophageal stricture at 20 cm from the incisor -Chronic anxiety not otherwise specified, stable Obesity BMI 31.6 Chronic GERD Disposition: Home. Soft diet Patient Condition at Discharge: Stable Plan - Discharge Summary Discharge Rx Participant: No New Discharge Prescriptions: Continue Sertraline HCl [Zoloft] 200 mg PO HS Discharge Medication List Sertraline HCl [Zoloft] 200 mg PO HS 11/06/18 [History] Follow up Appointment(s)/Referral(s): Velia Santoyo MD [STAFF PHYSICIAN] - 2 Weeks (call office for appointment date and time,office is closed at this time) Salvador Jung DO [Primary Care Provider] - 1-2 days (Please call for appointment date and time,office is closed) Patient Instructions/Handouts: Esophageal Foreign Body (GEN), Chronic Dysphagia (DC) Activity/Diet/Wound Care/Special Instructions: soft diet Discharge Disposition: HOME SELF-CARE
== END 2018-11-07 13:06 | disposition home or self-care (01) ==
LOC: EC 21:14 → 1SOBS 11-07 00:50
PROVIDERS: ADMIT Hospitalist; ATTEND Hospitalist
DX: T18.128A Food in esophagus causing other injury, initial encounter (principal); K22.2 Esophageal obstruction; K21.0 Gastro-esophageal reflux disease with esophagitis; F32.9 Major depressive disorder, single episode, unspecified; F41.9 Anxiety disorder, unspecified; Z68.31 Body mass index [BMI] 31.0-31.9, adult; E66.9 Obesity, unspecified; Z79.899 Other long term (current) drug therapy; Z91.012 Allergy to eggs
CPT/HCPCS: 96372; 96374; 99284; 88305; 80048; 85025; 85610; 81025; 70360; 43239; 43247; G0378; J2060; J1610; J0330; J2704; C9113

== ENCOUNTER 2019-01-07 11:02 | Day surgery (SDC) | payer BC ==
[2019-01-05 15:27] VITALS: BMI 32.5
[~2019-01-07 11:02] MED LIST: LACTATED RINGERS 1,000 ML IV SCH
[2019-01-07 12:11] VITALS: RESP 16; TEMP 98.9
[2019-01-07] MEDS ORDERED: LIDOCAINE 1% 20 ML VIAL (10MG/ML) FOR IV START INTRADERMA ONE (12:24)
[2019-01-07] MEDS ORDERED: LIDOCAINE 1% INJ 10MG/ML (20 ML MDV) ONE (12:56)
[2019-01-07] MEDS ORDERED: PROPOFOL 10 MG/ML 20 ML VIAL IV ONE (12:56)
--- NOTE | 2019-01-07 13:23 | P.PCN ---
Date of Procedure: 01/07/19 Procedure(s) Performed: BRIEF HISTORY: Patient is a 38-year-old, pleasant, white female scheduled for an upper endoscopy as a part of evaluation of intermittent dysphagia to solids for the last several months duration. She had an episode of acute food impaction and had an emergency upper endoscopy in 11/12/2018. She was noted to have a proximal esophageal stricture with food impaction and biopsies revealed eosinophilic esophagitis patient has been on a daily for diet and feels much better. She continues to have intermittent dysphagia and hence scheduled for an upper endoscopy with possible dilation. PROCEDURE PERFORMED: Esophagogastroduodenoscopy with biopsy and dilation. PREOPERATIVE DIAGNOSIS: Esophageal stricture/intermittent dysphagia to solids/eosinophilic esophagitis. IV sedation per anesthesia. PROCEDURE: After informed consent was obtained, the patient was brought into the endoscopy unit. IV sedation was administered by Anesthesia under continuous monitoring. Initially the Olympus GIF-140 video endoscope was inserted into the mouth. Esophagus intubated without any difficulty. It was gradually advanced into the proximal esophagus and the scope could not be advanced any further. This time a balloon dilation was performed using 10-12 mm TTS balloon in a sequential fashion for total of 90 seconds. Colon cancer was able to advance the scope into the stomach and duodenum and carefully examined. The bulb and the second part of the duodenum appeared normal. The scope at this time was withdrawn to the stomach, adequately insufflated with air, and upon careful examination, mucosa of the antrum, body, cardia and the fundus appeared normal. The scope was then withdrawn into the esophagus. The GE junction was located at 39 cm from the incisors. The entire length of esophagus had superficial mucosal rings but the tight stricture was located at 20 cm from the incisors. Biopsies were done from the mid and distal esophagus. Patient tolerated the procedure well. IMPRESSION: 1. Proximal cervical esophageal stricture at 20 cm from the incisors status post balloon dilation using 10-12 mm TTS balloon as described above. 2. Esophageal folds and multiple superficial rings involving the entire esophagus status post biopsies. RECOMMENDATIONS: The findings of this examination were discussed with the patient as well as her family. She will remain on a clear liquid diet. She will continue with Prevacid 20 mg twice daily and follow antireflux measures and she'll be on diet modification. She'll be seen in office in 6 weeks
[2019-01-07 13:36] VITALS: BP 119/75; PULSE 79
== END 2019-01-07 14:12 | disposition home or self-care (01) ==
LOC: ORWHC2ENDO 11:02
PROVIDERS: ATTEND Internal Medicine Gastroenterology
DX: K22.2 Esophageal obstruction (principal); K20.0 Eosinophilic esophagitis; Z79.899 Other long term (current) drug therapy; F41.9 Anxiety disorder, unspecified; K21.9 Gastro-esophageal reflux disease without esophagitis; Z91.012 Allergy to eggs; Z91.011 Allergy to milk products
CPT/HCPCS: 81025; 88305; 43239; 43249; J2001; J2704; C1726

== ENCOUNTER 2019-05-17 15:54 | Emergency (ER) | payer BC ==
[2019-05-17 16:05] VITALS: BP 141/76; PULSE 76; RESP 16; TEMP 98
[2019-05-17] MEDS ORDERED: LIDOCAINE 1% INJ 10MG/ML (20 ML MDV) SQ ONE (16:09)
--- NOTE | 2019-05-17 16:11 | ED ---
Wound/Laceration HPI - General Chief Complaint: Wound/Laceration Stated Complaint: finger laceration Time Seen by Provider: 05/17/19 16:06 Source: patient, RN notes reviewed Mode of arrival: ambulatory Limitations: no limitations - History of Present Illness Initial Comments: 39-year-old female presents emergency Department chief complaint laceration to her left hand second digit. Her tetanus is up-to-date. Patient states she was cutting an onion with a dull knife. She states it slipped cutting her finger. She has full range of motion neurovascular intact. - Related Data Home Medications Medication Instructions Recorded Confirmed Sertraline HCl [Zoloft] 200 mg PO HS 11/06/18 01/07/19 L.acidoph,Paracasei, B.lactis 1 each PO DAILY 01/05/19 01/07/19 [Probiotic] Allergies Allergy/AdvReac Type Severity Reaction Status Date / Time egg AdvReac Mild Itching Verified 01/07/19 12:15 Milk Containing Products AdvReac "heartburn Verified 01/07/19 12:15 [Dairy] and thickens my esophagus" Review of Systems ROS Statement: Those systems with pertinent positive or pertinent negative responses have been documented in the HPI. ROS Other: All systems not noted in ROS Statement are negative. Past Medical History Past Medical History: GERD/Reflux Additional Past Medical History / Comment(s): Patient's had 2 spontaneous vaginal deliveries. History of Any Multi-Drug Resistant Organisms: None Reported Past Surgical History: No Surgical Hx Reported Additional Past Surgical History / Comment(s): Patient had a dilation and curettage for a missed . Past Anesthesia/Blood Transfusion Reactions: No Reported Reaction, Family History of Problems w/ Anesthesia Additional Past Anesthesia/Blood Transfusion Reaction / Comment(s): PT'S MOM HAS PONV Past Psychological History: Anxiety Smoking Status: Never smoker - Past Family History Mother Family Medical History: No Reported History Father Family Medical History: No Reported History General Exam Limitations: no limitations General appearance: alert, in no apparent distress Neck exam: Present: normal inspection. Absent: tenderness, meningismus, lymphadenopathy Respiratory exam: Present: normal lung sounds bilaterally. Absent: respiratory distress, wheezes, rales, rhonchi, stridor Cardiovascular Exam: Present: regular rate, normal rhythm, normal heart sounds. Absent: systolic murmur, diastolic murmur, rubs, gallop, clicks Extremities exam: Present: other (Left hand second digit there is a 1 cm laceration at the distal portion full range of motion neurovascular intact) Course Vital Signs 05/17/19 16:02 Temperature 98.0 F Pulse Rate 76 Respiratory 16 Rate Blood Pressure 141/76 O2 Sat by Pulse 99 Oximetry Procedures - Laceration Laceration #1 Consent Obtained: verbal consent Indication: laceration Site: hand (Left hand second digit) Size (cm): 1 Description: linear Depth: simple, single layer Anesthetic Used: lidocaine 1%, without epi Anesthesia Technique: local infiltration Amount (mls): 3 Pre-repair: wound explored, irrigated extensively, deep structures intact Type of Sutures: nylon Size of Sutures: 4-0 Number of Sutures: 2 Technique: simple, interrupted Patient Tolerated Procedure: well, no complications Medical Decision Making - Medical Decision Making Patient of finger laceration this was thoroughly cleaned, no evidence of tendon injury. Patient had sutures placed on medications. Patient will be discharged in stable condition with return parameters wound care instructions given. Disposition Clinical Impression: Laceration of finger of left hand Disposition: HOME SELF-CARE Condition: Stable Instructions (If sedation given, give patient instructions): Finger Laceration (ED), Care For Your Stitches (ED) Additional Instructions: Have sutures removed in 10 days.Please return to the Emergency Department if symptoms worsen or any other concerns. Is patient prescribed a controlled substance at d/c from ED?: No Referrals: Salvador Jung DO [Primary Care Provider] - 1-2 days Time of Disposition: 16:24
== END 2019-05-17 16:32 | disposition home or self-care (01) ==
LOC: EC 15:54
DX: S61.211A Laceration without foreign body of left index finger without damage to nail, initial encounter (principal); F41.9 Anxiety disorder, unspecified; Z79.899 Other long term (current) drug therapy; Z91.012 Allergy to eggs; Z91.011 Allergy to milk products; W26.0XXA Contact with knife, initial encounter; Y93.G3 Activity, cooking and baking
CPT/HCPCS: 99282; 12001; J2001

== ENCOUNTER 2019-12-09 21:24 | Emergency (ER) | payer BC | END 2019-12-09 21:53 | disposition left against medical advice (07) | LOC: EC 21:24 | DX: Z53.21 Procedure and treatment not carried out due to patient leaving prior to being seen by health care provider (principal) | CPT/HCPCS: 99499 ==

== ENCOUNTER → 2020-09-25 | Outpatient (CLI) | payer BC | END | disposition home or self-care (01) | LOC: LABWHC1 14:24 | PROVIDERS: ATTEND Obstetrics & Gynecology | DX: O20.0 Threatened abortion (principal); Z3A.00 Weeks of gestation of pregnancy not specified | CPT/HCPCS: 36415; 84702; 86850 ==

== ENCOUNTER → 2020-09-26 | Outpatient (CLI) | payer BC ==
--- NOTE | 2020-09-26 14:41 | US ---
EXAMINATION TYPE: Transabdominal DATE OF EXAM: 09/26/2020 1:32 PM COMPARISON: NONE CLINICAL HISTORY: 046.91 Antepartum hemorrhage, unspecified, first EXAM PERFORMED: Transvaginal (TV) and Transabdominal (TA) EXAM MEASUREMENTS: GESTATIONAL AGE / DATING Physician Established: Not yet established Dates by LMP: 08/06/2020 (7 weeks/2 days) EDC: 05/13/2021 Dates by First Scan: No previous this is first scan Dates by Current Scan for: Unable to date by today's study MATERNAL ANATOMY Uterus: 11.7 x 3.7 x 5.8 cm Right Ovary: 3.7 x 3.2 x 2.7 cm Left Ovary: 2.0 x 1.9 x 1.3 cm, partially obscured by bowel gas. Post CDS / Adnexa: wnl Presence of free fluid: none Presence of corpus luteal cyst: cyst right ovary measures 2.5 x 2.0 x 2.3 cm Presence of subchorionic bleed: none appreciated. GESTATION / SURVEY CRL: not seen at this time MSD: 1.2 cm (6 weeks/0 days) Yolk Sac (normal less than 6mm): 0.3 cm Date of LMP: 08/06/2020 Beta HcG (if available): patient states it was drawn yesterday and it was 15,000. There is a gestational sac and yolk sac. Gestational sac measures 6 weeks 0 days. Appears as normal d eveloping early that does not correlate with LMP. Other etiologies not excluded. Recommend follow up Beta HcG and ultrasound. IMPRESSION: There is a single intrauterine with a yolk sac measuring 0.3 cm, mean sac diameter of 1.2 c m. No crown-rump length is seen. No heart tones could be obtained. This is worrisome for an ane mbryonic at a gestational age of 6 weeks. Heterotopic or Pseudogestational sac of an ectopic is not excluded. Continued obstetric follow-up, beta hCG serially, and ultrasou nd follow-up as necessary. The gestational age is 7 weeks and 2 days by dates. 2.5 cm corpus luteum cyst in the right ovary.
== END | disposition home or self-care (01) ==
LOC: RADUSWWP 13:03
PROVIDERS: ATTEND Obstetrics & Gynecology
DX: O02.0 Blighted ovum and nonhydatidiform mole (principal); O34.81 Maternal care for other abnormalities of pelvic organs, first trimester; N83.201 Unspecified ovarian cyst, right side; Z3A.01 Less than 8 weeks gestation of pregnancy
CPT/HCPCS: 76801; 76817

== ENCOUNTER → 2020-10-05 | Outpatient (CLI) | payer BC ==
--- NOTE | 2020-10-05 12:36 | US ---
EXAMINATION TYPE: Ultrasound OB <= 14 weeks transvaginal DATE OF EXAM: 10/05/2020 8:02 AM COMPARISON: NONE CLINICAL HISTORY: 40-year-old female Z36 CONFIRM DATES. EXAM PERFORMED: Transvaginal (TV) and Transabdominal (TA) FINDINGS: EXAM MEASUREMENTS: GESTATIONAL AGE / DATING Physician Established: Not yet established Dates by LMP: LMP unknown Dates by First Scan: No IUP seen on first scan ( EDC: 05/13/2021 Dates by Current Scan for: ( 6 weeks/0 days) EDC: 06/02/2021 MATERNAL ANATOMY Uterus: 11.8 x 4.4 x 5.3 cm Right Ovary: 4.1 x 2.8 x 3.5 cm Left Ovary: Obscured by bowel gas Post CDS / Adnexa: wnl Presence of free fluid: no Presence of corpus luteal cyst: yes right Presence of subchorionic bleed: no GESTATION / SURVEY CRL: 0.32 cm (6 weeks/0 days) Yolk Sac (normal less than 6mm): 4 mm IUP: pole seen no heart tones seen at this time. Beta HcG (if available): Not available at this time Electric Meter Technician notes: No heart tones visualized IMPRESSION: Intrauterine with crown-rump length of 3.2 mm corresponding to 6 weeks 0 days. Note that MS D on 09/26/2020 also corresponded to a 6 week 0 day gestation. No heart tones detected at this time but the pole is very small at 3 mm. Continued follow-up recommended to ensure the appearance of fe katiuska heart tones and viability.
== END | disposition home or self-care (01) ==
LOC: RADUSWWP 07:12
PROVIDERS: ATTEND Obstetrics & Gynecology
DX: O36.8310 Maternal care for abnormalities of the fetal heart rate or rhythm, first trimester, not applicable or unspecified (principal); Z3A.01 Less than 8 weeks gestation of pregnancy
CPT/HCPCS: 76801; 76817

== ENCOUNTER → 2020-10-11 | Outpatient (CLI) | payer BC ==
--- NOTE | 2020-10-11 11:33 | US ---
EXAMINATION TYPE: Transabdominal DATE OF EXAM: 10/11/2020 10:40 AM COMPARISON: 10/05/2020 CLINICAL HISTORY: O76 Abnormal or absent heart tones. Missed AB EXAM PERFORMED: Transvaginal (TV) and Transabdominal (TA) EXAM MEASUREMENTS: GESTATIONAL AGE / DATING Physician Established: Not yet established Dates by LMP: (9 weeks/3 days) EDC: 05/13/2021 Dates by First Scan: (6 weeks/0 days) EDC: 06/02/2021 Dates by Current Scan for: (5 weeks/5 days) EDC: 06/02/2020 MATERNAL ANATOMY Uterus: 9.4 x 4.8 x 4.9 cm Right Ovary: 2.5 x 2.1 x 2.2 cm Left Ovary: 2.5 x 1.3 x 1.8 cm Post CDS / Adnexa: wnl Presence of free fluid: no Presence of corpus luteal cyst: right Presence of subchorionic bleed: no GESTATION / SURVEY CRL: 0.23cm (5 weeks/5 days) IUP: No heart tones seen. Beta HcG (if available): Not available at this time IMPRESSION: Single intrauterine with crown-rump length measuring up to 0.23 cm, previously measured up to 0.3 cm 6 days ago. No definite embryonic cardiac activity. These findings are worrisome for missed . Please correlate with patient's quantitative beta hCG values and with clinical scenario.
== END | disposition home or self-care (01) ==
LOC: RADUSWWP 10:19
PROVIDERS: ATTEND Obstetrics & Gynecology
DX: O02.1 Missed abortion (principal)
CPT/HCPCS: 76801; 76817

== ENCOUNTER → 2020-10-16 | Outpatient (CLI) | payer BC ==
[2020-10-16 15:58] LABS: Basophils % (A) 0 %; Eosinophils # (A) 0.2 k/uL (0-0.7); Eosinophils % (A) 3 %; HCT 35.5 % (34.0-46.0); HGB 12.1 gm/dL (11.4-16.0); Lymphocytes # (A) 1.3 k/uL (1.0-4.8); Lymphocytes % (A) 18 %; MCH 29.2 pg (25.0-35.0); MCHC 34.1 g/dL (31.0-37.0); MCV 85.6 fL (80.0-100.0); Mean Platelet Volume 8.7; Monocytes # (A) 0.3 k/uL (0-1.0); Monocytes % (A) 5 %; Neutrophils # (A) 5.3 k/uL (1.3-7.7); Neutrophils % (A) 74 %; Platelet Count 195 k/uL (150-450); RBC 4.15 m/uL (3.80-5.40); RDW 13.2 % (11.5-15.5); WBC 7.2 k/uL (3.8-10.6)
== END | disposition home or self-care (01) ==
LOC: LABPAT 15:31
PROVIDERS: ATTEND Obstetrics & Gynecology
DX: Z01.812 Encounter for preprocedural laboratory examination (principal)
CPT/HCPCS: 85025; 86850; 86870; 86880; 86900; 86901

== ENCOUNTER 2020-10-18 | Day surgery (SDC) | payer BC | END 2020-10-18 14:40 | disposition home or self-care (01) | CPT/HCPCS: 59820; 86900; 86901; 88305; 86850; 86870; 86880; J2250; J1100; J2405; J2001; J3010; J2704 ==

== ENCOUNTER 2021-06-28 14:49 | Outpatient (CLI) | payer BC ==
[2021-06-28 16:29] LABS: Appearance,Urine Clear (Clear); Bilirubin,Urine Negative (Negative); Blood,Urine Negative (Negative); Color,Urine Light Yellow; Glucose,Urine (UA) Negative (Negative); Ketones,Urine Negative (Negative); Leukocyte Esterase,Urine Negative (Negative); Nitrite,Urine Negative (Negative); PH, Urine 7.5 (5.0-8.0); Protein,Urine Negative (Negative); Specific Gravity,Urine 1.007 (1.001-1.035); Urobilinogen,Urine <2.0 mg/dL (<2.0)
[2021-06-28 16:49] VITALS: BP 126/78; PULSE 110; RESP 16; TEMP 99.1
--- NOTE | 2021-06-29 07:03 | P.MSEPDOC ---
Presenting Problems - Arrival Data Date of Arrival on Unit: 06/28/21 Time of Arrival on Unit: 14:46 Mode of Transport: Ambulatory - Complaint OB-Reason for Admission/Chief Complaint: Pain Medical History - Information : 6 Para: 3 Number of Living Children: 3 - Gestational Age Gestational Age by SHELLEY (wks/days): 31 Weeks and 5 Days Review of Systems - Review of Systems Constitutional: No problems Breast: No problems ENT: No problems Cardiovascular: No problems Respiratory: No problems Gastrointestinal: No problems Genitourinary: No problems Musculoskeletal: No problems Neurological: No problems Skin: No problems Vital Signs - Temperature Temperature: 99.1 F Temperature Source: Oral - Pulse Right Sitting Brachial Pulse Rate: 110 Pulse Assessment Method: Automatic Cuff - Respirations Respiratory Rate: 16 Oxygen Delivery Method: Room Air O2 Sat by Pulse Oximetry: 98 - Blood Pressure Right Arm Sitting Blood Pressure: 126/78 Blood Pressure Mean: 94 Blood Pressure Source: Automatic Cuff Medical Screen Scoring - Cervical Exam Dilation (cm): 0 Effacement (%): 0 - Assessment - Baby A Baseline FHR: 155 Heart Rate - NICHD Category: Category I (Normal) NST: Reactive Physician Notification - Physician Notified Physician Notified Date: 06/28/21 Physician Notified Time: 15:30 Physician: Jose Lee New Order Received: Yes Maternal Triage Index - Maternal Triage Index Presenting for scheduled procedure w/no complaint: No - Stat/Priority 1 Stat Priority 1: No - Urgent/Priority 2 Urgent Priority 2: No - Prompt/Priority 3 Prompt Priority 3: No - Non-Urgent/Priority 4 Non-Urgent Priority 4: Yes Criteria Met for Priority 4: lightheaded, nausea Disposition - Disposition OB Disposition: Discharge to home Discharge Date: 06/28/21 Discharge Time: 16:41 I agree with the RN Medical Screening Exam: Yes Case reviewed; plan agreed upon as documented in EMR&OBIX.: Yes Diagnosis: FALSE LABOR BEFORE 37 COMPLETED WEEKS OF GEST, THIRD TRI
== END 2021-06-28 16:41 | disposition home or self-care (01) ==
LOC: FBPOP 14:49
PROVIDERS: ATTEND Obstetrics & Gynecology
DX: O47.03 False labor before 37 completed weeks of gestation, third trimester (principal); Z3A.31 31 weeks gestation of pregnancy
CPT/HCPCS: 59025; 81003; 99213

== ENCOUNTER 2021-08-20 05:58 | Inpatient (IN) | payer BC ==
--- NOTE | 2021-08-19 12:04 | P.HPOB ---
History of Present Illness H&P Date: 08/19/21 Chief Complaint: Requested induction of labor This patient is a pleasant 41-year-old 6 para 3 female estimated date of confinement 08/25/2021 estimated gestational age 39-2/7 weeks who presents to labor and delivery for requested induction of labor. Patient's care has been complicated by advanced for maternal age. She did have a normal Materni T21 (46 XY) and also normal level III ultrasound including cardiac echo. Patient's had normal testing and she now has a favorable cervix and wishes to proceed with induction. Review of Systems Genitourinary: Reports Menstruation: Reports amenorrhea Past Medical History Past Medical History: GERD/Reflux Additional Past Medical History / Comment(s): EOSINOPHILIC ESOPHAGITIS History of Any Multi-Drug Resistant Organisms: None Reported Past Surgical History: No Surgical Hx Reported Additional Past Surgical History / Comment(s): Patient had a dilation and curettage for a missed . esophageal dilatation Past Anesthesia/Blood Transfusion Reactions: No Reported Reaction, Family History of Problems w/ Anesthesia Additional Past Anesthesia/Blood Transfusion Reaction / Comment(s): PT'S MOM HAS PONV Past Psychological History: No Psychological Hx Reported Smoking Status: Never smoker Past Alcohol Use History: None Reported Past Drug Use History: None Reported - Past Family History Mother Family Medical History: No Reported History Father Family Medical History: No Reported History Medications and Allergies Home Medications Medication Instructions Recorded Confirmed Type Sertraline HCl [Zoloft] 200 mg PO HS 11/06/18 08/09/21 History Acetaminophen [Tylenol] 2 tab PO DAILY 06/28/21 08/09/21 History Aspirin 1 tab PO DAILY 06/28/21 08/09/21 History Folic Acid 1 tab PO DAILY 06/28/21 08/09/21 History Allergies Allergy/AdvReac Type Severity Reaction Status Date / Time egg AdvReac Mild Itching Verified 08/09/21 14:32 Milk Containing Products AdvReac "heartburn Verified 08/09/21 14:32 [Dairy] and thickens my esophagus" Exam - OBG Physical Exam Abdomen: bowel sounds normal, no diffuse tenderness, no bruit present, no guarding noted, no hepatomegaly, no splenomegaly, no mass Vulva: both: normal Vagina: normal moisture, no discharge Cervix: no lesion, no discharge Uterus: enlarged (Fundal height is 38 cm) Results blood work shows she is AB-, rubella immune, RPR nonreactive, hepatitis B negative, Glucola was normal, group B strep was positive, most recent ultrasound showed estimated weight of 6 lbs. 3 oz. I was on July 23. Patient received RhoGAM on June 11. Assessment and Plan Assessment: This is a pleasant 41-year-old 6 para 3 female 39-2/7 weeks gestation who is admitted to labor and delivery for elective induction of labor. Patient is a positive group B strep status therefore she will be given IV antibiotics and Pitocin induction of labor per protocol. Anticipate normal vaginal delivery. (1) 39 weeks gestation of Status: Acute Code(s): Z3A.39 - 39 WEEKS GESTATION OF SNOMED Code(s): 78042029 (2) Elderly multigravida Status: Acute Code(s): O09.529 - SUPERVISION OF ELDERLY MULTIGRAVIDA, UNSPECIFIED TRIMESTER SNOMED Code(s): 088915764 (3) Elective induction of labor planned Status: Acute Code(s): JMS1841 - SNOMED Code(s): 166006902 (4) Group B streptococcal carriage complicating Status: Acute Code(s): O99.820 - STREPTOCOCCUS B CARRIER STATE COMPLICATING SNOMED Code(s): 922049879423829 (5) Rh negative, maternal Status: Chronic Code(s): O09.899 - SUPERVISION OF OTHER HIGH RISK PREGNANCIES, UNSP TRIMESTER SNOMED Code(s): 596582985
[2021-08-20] MEDS ORDERED: AMPICILLIN 2,000 MG in SODIUM CHLORIDE 0.9% 100 ML IVPB ONE (06:00)
[2021-08-20] MEDS ORDERED: OXYTOCIN 10 UNIT/ML 1 ML VIAL IM PRN (06:02)
[2021-08-20] MEDS ORDERED: LIDOCAINE 1% (PF) 10 MG/ML (30 ML SDV) SQ PRN (06:02)
[2021-08-20] MEDS ORDERED: LACTATED RINGERS 1,000 ML IV SCH (06:02)
[2021-08-20] MEDS ORDERED: METHYLERGONOVINE 0.2 MG/ML 1 ML AMP IM PRN (06:02)
[2021-08-20] MEDS ORDERED: CARBOPROST TROMETHAMINE 250 MCG/ML 1 ML AMP IM PRN (06:02)
[2021-08-20] MEDS ORDERED: OXYTOCIN 30 UNITS/500 ML NS 30 UNIT in SALINE 1 500ML.BAG IV SCH ×2 (06:02→13:11)
[2021-08-20] MEDS ORDERED: TERBUTALINE 1 MG/ML VIAL SQ PRN (06:02)
[2021-08-20 06:53] LABS: Basophils % (A) 0 %; Eosinophils # (A) 0.1 k/uL (0-0.7); Eosinophils % (A) 1 %; HCT 28.2 % (34.0-46.0); HGB 9.3 gm/dL (11.4-16.0); Hypochromasia Slight; Lymphocytes # (A) 1.7 k/uL (1.0-4.8); Lymphocytes % (A) 15 %; MCH 26.4 pg (25.0-35.0); MCHC 32.8 g/dL (31.0-37.0); MCV 80.5 fL (80.0-100.0); Mean Platelet Volume 10.2; Monocytes # (A) 0.5 k/uL (0-1.0); Monocytes % (A) 4 %; Neutrophils # (A) 8.3 k/uL (1.3-7.7); Neutrophils % (A) 77 %; Platelet Count 181 k/uL (150-450); RDW 14.7 % (11.5-15.5); WBC 10.8 k/uL (3.8-10.6)
[2021-08-20] MEDS ORDERED: BUTORPHANOL 1 MG/ML 1 ML VIAL IV PRN (07:35)
[2021-08-20] MEDS ORDERED: AMPICILLIN 1,000 MG in SODIUM CHLORIDE 0.9% 50 ML IVPB SCH (10:00)
[2021-08-20] MEDS ORDERED: ROPIVACAINE 100 MG, fentaNYL (PF). 200 MCG in SODIUM CHLORIDE 0.9% 76 ML EPIDURAL ONE (10:59)
[2021-08-20] MEDS ORDERED: Rhogam IMMUNE GLOBULIN 1,500 UNIT/1 ML IM ONE (13:11)
[2021-08-20] MEDS ORDERED: diphenhydrAMINE 25 MG CAP PO PRN (13:11)
[2021-08-20] MEDS ORDERED: bisacodyL 10 MG SUPP RECTAL PRN (13:11)
[2021-08-20] MEDS ORDERED: ACETAMINOPHEN TAB 325 MG TAB PO PRN (13:11)
[2021-08-20] MEDS ORDERED: SIMETHICONE 80 MG CHEWABLE PO PRN (13:11)
[2021-08-20] MEDS ORDERED: BENZOCAINE/MENTHOL SPRAY 1 GM/SPRAY AEROSOL TOPICAL PRN (13:11)
[2021-08-20] MEDS ORDERED: ZOLPIDEM 5 MG TAB PO PRN (13:11)
[2021-08-20] MEDS ORDERED: LANOLIN CREAM 5 GM TUBE TOPICAL PRN (13:11)
[2021-08-20] MEDS ORDERED: HYDROCORTISONE 2.5% RECTAL CREAM 30 GM TUBE RECTAL PRN (13:11)
[2021-08-20] MEDS ORDERED: diphenhydrAMINE 50 MG/ML 1 ML VIAL IVP PRN (13:11)
[2021-08-20] MEDS ORDERED: IBUPROFEN 600 MG TAB PO PRN (13:11)
[2021-08-20] MEDS ORDERED: IBUPROFEN ORAL SUSP 100 MG/5 ML CUP PO PRN (15:44)
[2021-08-20] MEDS: IBUPROFEN ORAL SUSP 100 MG/5 ML CUP PO PRN (15:45)
--- NOTE | 2021-08-20 18:23 | P.PROBDLV ---
Vaginal Delivery Note - . Vaginal Delivery Note: Normal vaginal delivery (vacuum assisted) viable male infant Apgars 9 and 9 delivery time was 1155 hrs. Please see dictated H&P for intimate details of this patient's admission. In brief summary this is a pleasant 41-year-old 6 para 3 female estimated gestational age 39-2/7 weeks who presents to labor and delivery for requested induction of labor. On admission patient is 2 cm dilated and does have antibiotics started for positive group B strep culture. I did wait a bit to rupture her membranes so that I could get more time with the antibiotics. She has artificial rupture membranes at 2 cm for thick meconium-stained fluid. heart tones are category 1 without decelerations. Patient has Pitocin induction of labor per protocol. Labor progresses and she does get an epidural for pain control. Patient gets to complete. At this time the head is thought to be occiput posterior presentation. She begins pushing and does have some bradycardia into the 70s to 90s. I allow this to rebound for several contractions however it continues at this time I discussed using a vacuum for delivery due to persistent bradycardia. position is found to be right occiput posterior. Vacuum is applied and with 2 applications we have delivery of the infant's head with maternal effort. Mouth and nares are bulb suctioned. There is a double nuchal cord which is reduced. We then have spontaneous delivery the anterior posterior shoulder and rest this 's body. This is a viable male Apgars are 9 and 9. Infant does have spontaneous respirations and cry. Administrative Office Specialist is present for delivery. After delivery of the infant the umbilical cord is doubly clamped and cut and infant is taken to the warmer for observation. Placenta spontaneously delivered intact. Estimated blood loss is about 100 mL. There are no lacerations and no repairs required. Cord blood was obtained for Rh status. Infant and mother are in stable delivery room and infant will be taken special care for observation.
[2021-08-20] MEDS: SENNOSIDES-DOCUSATE SODIUM 1 EACH TAB PO SCH ×2 (22:06→22:09)
[2021-08-21] MEDS: IBUPROFEN ORAL SUSP 100 MG/5 ML CUP PO PRN ×4 (00:04→23:12)
--- NOTE | 2021-08-21 06:35 | P.PNOBGVD ---
Subjective - Subjective Patient reports: Reports appetite normal, Reports voiding normally, Reports pain well controlled, Reports ambulating normally : doing well Objective - Latest Vital Signs Latest vital signs: Vital Signs Temp Pulse Resp BP Pulse Ox 08/21/21 00:00 98.4 F 67 16 125/72 08/20/21 20:00 98.4 F 81 16 136/68 98 08/20/21 15:49 98.3 F 83 15 134/77 08/20/21 14:15 97.0 F L 92 15 140/84 08/20/21 13:45 77 16 139/83 08/20/21 13:15 69 16 133/84 08/20/21 13:00 71 15 133/77 08/20/21 12:45 81 15 129/71 08/20/21 12:30 74 15 124/68 08/20/21 12:15 96.3 F L 85 15 127/75 Intake and Output 08/20/21 08/20/21 08/21/21 14:59 22:59 06:59 Output Total 300 Balance -300 Output: Urine 150 Straight 150 Output, Quantitative 150 Blood Loss Other: # Voids 1 - Exam Lungs: bilateral: normal Chest: Normal S1, Normal S2 Extremities: Present: normal Abdomen: Present: normal appearance, soft Uterus: Present: normal, firm - Labs Labs: Abnormal Lab Results - Last 24 Hours (Table) 08/20/21 Range/Units 06:25 WBC 10.8 H (3.8-10.6) k/uL RBC 3.50 L (3.80-5.40) m/uL Hgb 9.3 L (11.4-16.0) gm/dL Hct 28.2 L (34.0-46.0) % Neutrophils # 8.3 H (1.3-7.7) k/uL Assessment and Plan Assessment: day #1. Patient is resting without new complaints. Vital signs are stable and she is afebrile. Uterus is firm nontender she's having normal lochia. My impression is that this is a normal course. Plan is to continue routine care discharge home tomorrow (1) 39 weeks gestation of Current Visit: No Status: Acute Code(s): Z3A.39 - 39 WEEKS GESTATION OF SNOMED Code(s): 82945774 (2) Elderly multigravida Current Visit: No Status: Acute Code(s): O09.529 - SUPERVISION OF ELDERLY MULTIGRAVIDA, UNSPECIFIED TRIMESTER SNOMED Code(s): 627363627 (3) Elective induction of labor planned Current Visit: No Status: Acute Code(s): TDG7935 - SNOMED Code(s): 090632891 (4) Group B streptococcal carriage complicating Current Visit: No Status: Acute Code(s): O99.820 - STREPTOCOCCUS B CARRIER STATE COMPLICATING SNOMED Code(s): 024318138267344 (5) Rh negative, maternal Current Visit: No Status: Chronic Code(s): O09.899 - SUPERVISION OF OTHER HIGH RISK PREGNANCIES, UNSP TRIMESTER SNOMED Code(s): 570073631
[2021-08-21 07:40] LABS: Basophils % (A) 0 %; Eosinophils # (A) 0.1 k/uL (0-0.7); Eosinophils % (A) 1 %; HCT 27.4 % (34.0-46.0); HGB 8.8 gm/dL (11.4-16.0); Hypochromasia Moderate; Lymphocytes # (A) 1.5 k/uL (1.0-4.8); Lymphocytes % (A) 14 %; MCH 25.9 pg (25.0-35.0); MCV 80.9 fL (80.0-100.0); Mean Platelet Volume 10.7; Monocytes # (A) 0.4 k/uL (0-1.0); Monocytes % (A) 4 %; Neutrophils # (A) 8.6 k/uL (1.3-7.7); Neutrophils % (A) 79 %; Platelet Count 154 k/uL (150-450); RBC 3.38 m/uL (3.80-5.40); RDW 14.7 % (11.5-15.5); WBC 10.9 k/uL (3.8-10.6)
[2021-08-21] MEDS: SENNOSIDES-DOCUSATE SODIUM 1 EACH TAB PO SCH ×2 (08:55→19:53)
[2021-08-21] MEDS ORDERED: FERROUS SULFATE 325 MG TAB PO SCH (17:30)
[2021-08-21 23:42] VITALS: TEMP 98.1
[2021-08-22] MEDS: IBUPROFEN ORAL SUSP 100 MG/5 ML CUP PO PRN (05:21)
--- NOTE | 2021-08-22 06:18 | P.PNOBGVD ---
Subjective - Subjective Patient reports: Reports appetite normal, Reports voiding normally, Reports pain well controlled, Reports ambulating normally : doing well Objective - Latest Vital Signs Latest vital signs: Vital Signs Temp Pulse Resp BP Pulse Ox 08/21/21 23:36 98.1 F 64 16 138/78 98 08/21/21 20:00 97.7 F 80 16 131/80 95 08/21/21 16:00 98.4 F 71 14 131/85 08/21/21 08:00 97.9 F 78 16 135/84 - Exam Lungs: bilateral: normal Chest: Normal S1, Normal S2 Extremities: Present: normal Abdomen: Present: normal appearance, soft Uterus: Present: normal, firm - Labs Labs: Abnormal Lab Results - Last 24 Hours (Table) 08/21/21 Range/Units 07:23 WBC 10.9 H (3.8-10.6) k/uL RBC 3.38 L (3.80-5.40) m/uL Hgb 8.8 L (11.4-16.0) gm/dL Hct 27.4 L (34.0-46.0) % Neutrophils # 8.6 H (1.3-7.7) k/uL Assessment and Plan Assessment: day #2. Patient is resting without complaints and wishes to go home. Hemoglobin yesterday was 8.8, pre-delivery was 9.3 appropriate. Patient is chronically anemic. Vital signs are stable she's afebrile. Uterus is firm nontender and she is having normal lochia. Plan today is to continue routine care and discharge home later this morning (1) 39 weeks gestation of Current Visit: No Status: Acute Code(s): Z3A.39 - 39 WEEKS GESTATION OF SNOMED Code(s): 00362993 (2) Elderly multigravida Current Visit: No Status: Acute Code(s): O09.529 - SUPERVISION OF ELDERLY MULTIGRAVIDA, UNSPECIFIED TRIMESTER SNOMED Code(s): 747471467 (3) Elective induction of labor planned Current Visit: No Status: Acute Code(s): OQC9516 - SNOMED Code(s): 053544759 (4) Group B streptococcal carriage complicating Current Visit: No Status: Acute Code(s): O99.820 - STREPTOCOCCUS B CARRIER STATE COMPLICATING SNOMED Code(s): 469744130286113 (5) Rh negative, maternal Current Visit: No Status: Chronic Code(s): O09.899 - SUPERVISION OF OTHER HIGH RISK PREGNANCIES, UNSP TRIMESTER SNOMED Code(s): 045169596
--- NOTE | 2021-08-22 06:22 | P.DS ---
Providers Date of admission: 08/20/21 05:58 Expected date of discharge: 08/22/21 Attending physician: Jose Lee Primary care physician: Stated None - Discharge Diagnosis(es) (1) 39 weeks gestation of Current Visit: No Status: Acute (2) Elderly multigravida Current Visit: No Status: Acute (3) Elective induction of labor planned Current Visit: No Status: Acute (4) Group B streptococcal carriage complicating Current Visit: No Status: Acute (5) Rh negative, maternal Current Visit: No Status: Chronic Hospital Course: Please see dictated H&P for intimate details of this patient's admission. Brief summary this is a pleasant 41-year-old 6 para 3 female 39-2/7 weeks gestation admitted to labor and delivery for requested induction of labor. Patient is uncomplicated induction of labor was on have a vaginal delivery of viable male infant. Please see dictated delivery note. day #1 patient's to well she is anemic but this is chronic in nature and she is asymptomatic. 2 she continues to well was felt be stable for discha rge home follow up with me in 6 weeks. Procedures: Induction of labor and normal vaginal delivery (vacuum assisted) Patient Condition at Discharge: Good Plan - Discharge Summary New Discharge Prescriptions: New Ferrous Sulfate [Iron (65 MG Elemental)] 325 mg PO BID-W/MEALS #60 tab Ibuprofen [Motrin] 600 mg PO Q6HR PRN #30 tab PRN Reason: Mild Pain (Scale 1 To 3) No Action Sertraline HCl [Zoloft] 200 mg PO HS Acetaminophen [Tylenol] 2 tab PO DAILY Folic Acid 1 tab PO DAILY Aspirin 1 tab PO DAILY Discharge Medication List Sertraline HCl [Zoloft] 200 mg PO HS 11/06/18 [History] Acetaminophen [Tylenol] 2 tab PO DAILY 06/28/21 [History] Aspirin 1 tab PO DAILY 06/28/21 [History] Folic Acid 1 tab PO DAILY 06/28/21 [History] Ferrous Sulfate [Iron (65 MG Elemental)] 325 mg PO BID-W/MEALS #60 tab 08/22/21 [Rx] Ibuprofen [Motrin] 600 mg PO Q6HR PRN #30 tab 08/22/21 [Rx] Follow up Appointment(s)/Referral(s): Jose Lee MD [STAFF PHYSICIAN] - 09/30/21 10:30 am Patient Instructions/Handouts: Vaginal Delivery (DC), Iron Deficiency Anemia (GEN) Activity/Diet/Wound Care/Special Instructions: No intercourse or anything per vagina for 6 weeks. Please call if any fever, chills, excessive vaginal bleeding, and/or abdominal pain Discharge Disposition: HOME SELF-CARE
[2021-08-22] MEDS: SENNOSIDES-DOCUSATE SODIUM 1 EACH TAB PO SCH (10:40)
[2021-08-22 10:45] VITALS: BP 124/83; PULSE 68; RESP 14
== END 2021-08-22 11:10 | disposition home or self-care (01) | DRG 807 ==
LOC: 4FBP 05:58
PROVIDERS: ADMIT Obstetrics & Gynecology; ATTEND Obstetrics & Gynecology
PROC: 3E0234Z Introduction of Serum, Toxoid and Vaccine into Muscle, Percutaneous Approach (ICD-10-PCS; principal; 2021-08-20)
PROC: 4A0HXCZ Measurement of Products of Conception, Cardiac Rate, External Approach (ICD-10-PCS; principal; 2021-08-20)
PROC: 10D07Z6 Extraction of Products of Conception, Vacuum, Via Natural or Artificial Opening (ICD-10-PCS; principal; 2021-08-20)
PROC: 10907ZC Drainage of Amniotic Fluid, Therapeutic from Products of Conception, Via Natural or Artificial Opening (ICD-10-PCS; principal; 2021-08-20)
PROC: 3E033VJ Introduction of Other Hormone into Peripheral Vein, Percutaneous Approach (ICD-10-PCS; principal; 2021-08-20)
DX: O99.824 Streptococcus B carrier state complicating childbirth (principal); Z37.0 Single live birth; O69.81X0 Labor and delivery complicated by cord around neck, without compression, not applicable or unspecified; O77.0 Labor and delivery complicated by meconium in amniotic fluid; K21.00 Gastro-esophageal reflux disease with esophagitis, without bleeding; O99.62 Diseases of the digestive system complicating childbirth; O90.81 Anemia of the puerperium; O26.893 Other specified pregnancy related conditions, third trimester; Z67.41 Type O blood, Rh negative; D64.9 Anemia, unspecified; O99.892 Other specified diseases and conditions complicating childbirth; R00.1 Bradycardia, unspecified; Z3A.39 39 weeks gestation of pregnancy; Z79.82 Long term (current) use of aspirin; Z91.012 Allergy to eggs; Z91.011 Allergy to milk products
CPT/HCPCS: 85025; 85461; 86850; 86870; 86880; 86900; 86901

== ENCOUNTER 2022-08-27 19:04 | Emergency (ER) | payer BC ==
[2022-08-27 19:16] VITALS: TEMP 98.3
[2022-08-27] MEDS ORDERED: GLUCAGON 1 MG/ML VIAL IVP STA ×2 (19:32→21:24)
[2022-08-27] MEDS ORDERED: NITROGLYCERIN SL TABS 0.4 MG TAB SUBLINGUAL STA (19:32)
[2022-08-27] MEDS ORDERED: SODIUM CHLORIDE 0.9% 1,000 ML IV ONE (19:32)
[2022-08-27 20:17] VITALS: PULSE 97; RESP 20
[2022-08-27] MEDS ORDERED: ONDANSETRON 4 MG/2 ML VIAL IVP STA (21:35)
--- NOTE | 2022-08-27 21:44 | ED ---
General Adult HPI - General Chief complaint: ENT Stated complaint: food stuck in throat Time Seen by Provider: 08/27/22 19:15 Source: patient Mode of arrival: ambulatory Limitations: no limitations - History of Present Illness Initial comments: 42-year-old female with past history of eosinophilic esophagitis, esophageal stricture with dilation who presents to the emergency department reporting food bolus. States that around 5:30 she was eating penne pasta with tomato sauce when she felt they get stuck in her throat. She has been unable to swallow any food, drink or spit since it happened. She has had nausea without vomiting. She attempted to drink Coke and jump on her feet however was unsuccessful in breathing the food up. For years ago she had to have an EGD to have steak retrieved from her throat. This was done by Dr. King and she received dilation. She had an additional episode where she had to come to the hospital and was given glucagon. States that this did help and she did not require intervention at that time. She denies any shortness of breath. No other alleviating, precipitating or modifying factors - Related Data Home Medications Medication Instructions Recorded Confirmed Sertraline HCl [Zoloft] 200 mg PO HS 11/06/18 09/05/22 ALPRAZolam [Xanax] 0.25 mg PO DAILY PRN 09/05/22 09/05/22 Loratadine [Claritin] 10 mg PO DAILY 09/05/22 09/05/22 Allergies Allergy/AdvReac Type Severity Reaction Status Date / Time egg AdvReac Mild Itching Verified 09/03/22 10:56 Milk Containing Products AdvReac "heartburn Verified 09/03/22 10:56 [Dairy] and thickens my esophagus" Review of Systems ROS Statement: Those systems with pertinent positive or pertinent negative responses have been documented in the HPI. ROS Other: All systems not noted in ROS Statement are negative. Past Medical History Past Medical History: GERD/Reflux Additional Past Medical History / Comment(s): EOSINOPHILIC ESOPHAGITIS History of Any Multi-Drug Resistant Organisms: None Reported Past Surgical History: No Surgical Hx Reported Additional Past Surgical History / Comment(s): Patient has had 2 dilation and curettage for missed . esophageal dilatation Past Anesthesia/Blood Transfusion Reactions: No Reported Reaction, Family History of Problems w/ Anesthesia Additional Past Anesthesia/Blood Transfusion Reaction / Comment(s): PT'S MOM HAS PONV Past Psychological History: No Psychological Hx Reported Smoking Status: Never smoker Past Alcohol Use History: None Reported Past Drug Use History: None Reported - Past Family History Mother Family Medical History: No Reported History Father Family Medical History: No Reported History General Exam Limitations: no limitations General appearance: alert, in no apparent distress Head exam: Present: atraumatic, normocephalic, normal inspection Eye exam: Present: normal appearance, PERRL, EOMI. Absent: scleral icterus, conjunctival injection, periorbital swelling ENT exam: Present: normal exam, mucous membranes moist Neck exam: Present: normal inspection. Absent: tenderness, meningismus, lymphadenopathy Respiratory exam: Present: normal lung sounds bilaterally. Absent: respiratory distress, wheezes, rales, rhonchi, stridor Cardiovascular Exam: Present: regular rate, normal rhythm, normal heart sounds. Absent: systolic murmur, diastolic murmur, rubs, gallop, clicks GI/Abdominal exam: Present: soft, normal bowel sounds. Absent: distended, tenderness, guarding, rebound, rigid Extremities exam: Present: normal inspection, full ROM, normal capillary refill. Absent: tenderness, pedal edema, joint swelling, calf tenderness Back exam: Present: normal inspection Neurological exam: Present: alert, oriented X3, CN II-XII intact Psychiatric exam: Present: normal affect, normal mood Skin exam: Present: warm, dry, intact, normal color. Absent: rash Course Vital Signs 08/27/22 08/27/22 08/27/22 19:13 20:16 21:54 Temperature 98.3 F Pulse Rate 95 97 97 Respiratory 16 20 20 Rate Blood Pressure 143/83 146/90 143/92 O2 Sat by Pulse 98 97 98 Oximetry 08/27/22 22:25 Temperature Pulse Rate 97 Respiratory 20 Rate Blood Pressure 146/90 O2 Sat by Pulse 98 Oximetry Medical Decision Making - Medical Decision Making Was pt. sent in by a medical professional or institution ([facility]AN[facility] Perkins, HAND EMBROIDERER, urgent care, hospital, or long term...) When possible be specific @ -no Did you speak to anyone other than the patient for history (EMS, parent, family, police, friend...)? What history was obtained from this source @ -no Did you review nursing and triage notes (agree or disagree)? Why? @ -I reviewed and agree with nursing and triage notes Were old charts reviewed (outside hosp., previous admission, EMS record, old EKG, old radiological studies, urgent care reports/EKG's, long term records)? Report findings @ -no old charts were reviewed Differential Diagnosis (chest pain, altered mental status, abdominal pain women, abdominal pain men, vaginal bleeding, weakness, fever, dyspnea, syncope, headache, dizziness, GI bleed, back pain, seizure, CVA, palpatations, mental health, musculoskeletal)? @ -esophageal abrasion, esophageal foreign body, esophageal web EKG interpreted by me (3pts min.). @ -no X-rays interpreted by me (1pt min.). @ -no CT interpreted by me (1pt min.). @ -None done U/S interpreted by me (1pt. min.). @ -None done What testing was considered but not performed or refused? (CT, X-rays, U/S, labs)? Why? @ -none What meds were considered but not given or refused? Why? @ -None Did you discuss the management of the patient with other professionals (professionals i.e. , PA, HAND EMBROIDERER, lab, RT, psych nurse, community mental health social worker, associate professor of archaeology, teacher, juvenile correctional officer, special education case manager)? Give summary @ -dr lee, dr arboleda - er and gi physicians at [facility] Was smoking cessation discussed for >3mins.? @ -No Was critical care preformed (if so, how long)? @ -yes 35 minutes for arranged transfer and management of suspected food bolus Were there social determinants of health that impacted care today? How? (Homelessness, low income, unemployed, alcoholism, drug addiction, transportation, low edu. Level, literacy, decrease access to med. care, intermediate, rehab)? @ -No Was there de-escalation of care discussed even if they declined (Discuss DNR or withdrawal of care, Hospice)? DNR status @ -no What co-morbidities impacted this encounter? (DM, HTN, Smoking, COPD, CAD, Cancer, CVA, ARF, Chemo, Hep., AIDS, mental health diagnosis, sleep apnea, morbid obesity)? @ -esopinophilic esophagitis Was patient admitted / discharged? Hospital course, mention meds given and route, prescriptions, significant lab abnormalities, going to OR and other pertinent info. @- Upon arrival patient is placed into room 23. A thorough history and physical exam is performed. IV access is established. She was given a sublingual nitro as well as 1 mg of glucagon. Patient has no improvement in her symptoms. I then called to speak with Dr. Arboleda at [facility]. He does accept transfer of the patient and does recommend that she get a second dose of glucagon. Patient is additionally given [address] Lee is accepting of the transfer to the emergency department. Patient does want to drive herself. is at bedside and will drive the patient bounced [facility]. She is instructed to proceed straight there. Do not stop. Do not eat anything. Patient understood these instructions and assumes the risks of not being transferred via EMS. IV is removed and the patient is transferred in stable condition after [employer] forms are signed Undiagnosed new problem with uncertain prognosis? @ -yes Drug Therapy requiring intensive monitoring for toxicity (Heparin, Nitro, Insulin, Cardizem)? @ -No Were any procedures done? @ none Diagnosis/symptom? @ acute nausea, vomiting, suspected esophageal food bolus Acute, or Chronic, or Acute on Chronic? @ -acute Uncomplicated (without systemic symptoms) or Complicated (systemic symptoms)? @ -complicated Side effects of treatment? @ -No Exacerbation, Progression, or Severe Exacerbation? @ -No Poses a threat to life or bodily function? How? (Chest pain, [place], CA, pneumonia, PE, COPD, DKA, ARF, appy, cholecystitis, CVA, Diverticulitis, Homicidal, Suicidal, threat to staff... and all critical care pts) @ -yes Disposition Clinical Impression: Food impaction of esophagus Disposition: OTHER INSTITUTION NOT DEFINED Condition: Serious Is patient prescribed a controlled substance at d/c from ED?: No Referrals: Salvador Jung DO [Primary Care Provider] - 1-2 days Time of Disposition: 21:43 - Out of Hospital Transfer - Req. Specs Out of Hospital Transfer - Requested Specifics: Other Emergency Center ([facility])
[2022-08-27 22:26] VITALS: BP 146/90
== END 2022-08-27 22:37 | disposition other institution (70) ==
LOC: EC 19:04
DX: T18.128A Food in esophagus causing other injury, initial encounter (principal); Z91.011 Allergy to milk products; Z91.012 Allergy to eggs
CPT/HCPCS: 99284; 96374; 96375; 96376; 96361; J1610; J2405

== ENCOUNTER 2022-09-05 10:47 | Day surgery (SDC) | payer BC ==
[2022-09-03 11:03] VITALS: BMI 32.9
[~2022-09-05 10:47] MED LIST changes: +LIDOCAINE 1% (10MG/ML) FOR IV START INTRADERMA PRN
[2022-09-05 11:30] VITALS: RESP 16; TEMP 98.1
[2022-09-05] MEDS ORDERED: PROPOFOL 10 MG/ML 20 ML VIAL IV ONE (12:00)
[2022-09-05] MEDS ORDERED: LIDOCAINE 2% INJ 20 MG/ML (2 ML VIAL) ONE (12:00)
--- NOTE | 2022-09-05 13:22 | P.PCN ---
Date of Procedure: 09/05/22 Procedure(s) Performed: BRIEF HISTORY: Patient is a 42-year-old, pleasant, white female scheduled for an upper endoscopy as a part of evaluation of dysphagia to solids for the last several months duration. She had an acute food bolus impaction a week ago for which she was transferred to [facility] and underwent an EGD with food removal... She is scheduled for an upper endoscopy with dilation today. She was diagnosed with years of age esophagitis and the past. PROCEDURE PERFORMED: Esophagogastroduodenoscopy with biopsy and dilation. PREOPERATIVE DIAGNOSIS: Progressive dysphagia to solids. IV sedation per anesthesia. PROCEDURE: After informed consent was obtained, the patient was brought into the endoscopy unit. IV sedation was administered by Anesthesia under continuous monitoring. Initially the Olympus GIF-140 video endoscope was inserted into the mouth. Esophagus intubated without any difficulty. It was gradually advanced into the proximal esophagus. Further advancement was not possible. At this time I proceeded with balloon dilation using 10 and 11 mm TTS balloon in a sequential fashion for 30 seconds. Following this there was some mucosal tear identified suggestive the rectum was able to advance the scope into the stomach and duodenum and carefully examined. The bulb and the second part of the duodenum appeared normal. The scope at this time was withdrawn to the stomach, adequately insufflated with air, and upon careful examination, mucosa of the antrum, body, cardia and the fundus appeared normal. The scope was then withdrawn into the esophagus. The GE junction was located at 39 cm from the incisors. There were thickened mucosal folds in the mid and distal esophagus and biopsies were done from this area. There was some mucosal tear at the site of dilation at 20 cm from the incisors but there was no bleeding identified. He tolerated the procedure IMPRESSION: 1. Tight proximal esophagus stricture at 22 cm from the incisors status post balloon dilation using 10-11 mm TTS balloon as described above. 2. Thickened esophageal folds in the mid and distal esophagus suggestive of eosinophilic esophagitis status post multiple biopsies. RECOMMENDATIONS: The findings of this examination were discussed with the patient as well as a family. She was advised to remain on clear liquids today. Continue with omeprazole 40 mg daily. She'll be seen in office in 3-4 weeks..
[2022-09-05 14:01] VITALS: BP 117/76; PULSE 72
== END 2022-09-05 14:06 | disposition home or self-care (01) ==
LOC: ORWHC2ENDO 10:47
PROVIDERS: ATTEND Internal Medicine Gastroenterology
DX: K22.2 Esophageal obstruction (principal); K21.00 Gastro-esophageal reflux disease with esophagitis, without bleeding; F41.9 Anxiety disorder, unspecified; Z91.012 Allergy to eggs; Z79.899 Other long term (current) drug therapy
CPT/HCPCS: 81025; 43239; 43249; J2704; J2001; C1726; 88305

== ENCOUNTER → 2022-12-22 | Outpatient (CLI) | payer BC ==
--- NOTE | 2022-12-23 10:45 | MM ---
Reason for Exam: Screening (asymptomatic). Baseline mammogram. Patient History: Menarche at age 16. First Full-Term at age 33. Late child-bearing (after 32). Premenopausal. Patient has history of breast feeding. Last menstrual period: 12/07/2022 Risk Values: Maddy 5 year model risk: 0.7%. NCI Lifetime model risk: 12.5%. Prior Study Comparison: Patient's first Mammogram. Tissue Density: The breast tissue is heterogeneously dense. This may lower the sensitivity of mammography. Findings: Analyzed By CAD. There is no suspicious group of microcalcifications or new suspicious mass in either breast. Overall Assessment: Negative, BI-RAD 1 Management: Screening Mammogram of both breasts in [address] [facility] will attempt to contact patient to return for supplemental views and ultrasound if indicated. Patient should continue monthly self-breast exams. A clinical breast exam by your physician is recommended on an annual basis. This exam should not preclude additional follow-up of suspicious palpable abnormalities. Note on Maddy scores and lifetime risk: 1. A Maddy score greater than 3% is considered moderate risk. If this is the case, consider specialist referral to assess eligibility for a risk reducing agent. 2. If overall lifetime risk for the development of breast cancer is 20% or higher, the patient may qualify for future screening with alternating mammogram and breast MRI. Electronically signed and approved by: Edin Dye DO
== END | disposition home or self-care (01) ==
LOC: RADMAMWWP 11:00
PROVIDERS: ATTEND Family Medicine
DX: Z12.31 Encounter for screening mammogram for malignant neoplasm of breast (principal)
CPT/HCPCS: 77063; 77067